=== PATIENT | female | born 1965 | race Caucasian/White ===

== ENCOUNTER 2017-01-14 00:34 | Emergency (ER) | payer BC ==
[~2017-01-14] VITALS: Ht 154.9 cm; Wt 100.9 kg
[2017-01-14] MEDS ORDERED: IBUP200C10 PO (00:40)
[2017-01-14] MEDS ORDERED: GASTROGRAFIN SOLUTION 30ML PO ONE (01:15)
[2017-01-14 01:39] LABS: ALBUMIN 3.2 GM/DL (3.2-5.2); ALBUMIN/GLOBULIN RATIO 0.74 (1.00-1.93); ALKALINE PHOSPHATASE 59 U/L (45-117); ALT/SGPT 25 U/L (12-78); AMYLASE 26 U/L (25-115); ANION GAP 6 MEQ/L (8-16); AST/SGOT 11 U/L (15-37); BILIRUBIN,DIRECT < 0.1 MG/DL (0.0-0.2); BILIRUBIN,TOTAL 0.3 MG/DL (0.2-1.0); BLOOD UREA NITROGEN 18 MG/DL (7-18); CALCIUM LEVEL 8.4 MG/DL (8.5-10.1); CARBON DIOXIDE LEVEL 25 MEQ/L (21-32); CHLORIDE LEVEL 109 MEQ/L (98-107); GLOMERULAR FILTRATION RATE > 60.0 (>58); GLUCOSE, FASTING 104 MG/DL (70-105); POTASSIUM SERUM 3.7 MEQ/L (3.5-5.1); SODIUM LEVEL 140 MEQ/L (136-145); TOTAL PROTEIN 7.5 GM/DL (6.4-8.2)
[2017-01-14 01:45] LABS: BASO # 0.1 K/mm3 (0.0-0.2); BASO % 0.8 % (0.0-1.0); EOS # 0.2 K/mm3 (0.0-0.50); EOS % 2.6 % (0.0-3.0); LARGE UNSTAINED CELL # 0.2 K/mm3 (0.0-0.4); LARGE UNSTAINED CELL % 2.7 % (0.0-4.0); LYMPH # 2.6 K/mm3 (1.5-4.5); LYMPH % 31.4 % (24.0-44.0); MEAN CORPUSCULAR HEMOGLOBIN 30.1 pg (27.0-33.0); MEAN CORPUSCULAR HGB CONC 33.7 g/dl (32.0-36.5); MEAN CORPUSCULAR VOLUME 89.1 fl (80.0-96.0); MONO # 0.6 K/mm3 (0.0-0.8); MONO % 8.1 % (0.0-5.0); NEUTROPHILS # 4.2 K/mm3 (1.8-7.7); NEUTROPHILS % 54.5 % (36.0-66.0); PLATELET COUNT, AUTOMATED 264 k/mm3 (150-450); RED CELL DISTRIBUTION WIDTH 14.6 % (11.5-14.5); WHITE BLOOD COUNT 7.8 K/mm3 (4.0-10.0)
[2017-01-14] MEDS ORDERED: GASTROGRAFIN SOLUTION 30ML (Q9963) PO ONE (01:45)
--- NOTE | 2017-01-14 03:10 | REPUSA ---
CLINICAL HISTORY: Abdominal pain. TECHNIQUE: Multiple axial, sagittal and coronal CT images were obtained through the abdomen and pelvi s without administration of IV contrast material. Patient ingested oral contrast. COMMENTS: Sigmoid diverticulosis. Mild fat stranding surrounding the proximal aspect of the sigmoid colon sugge stive of mild diverticulitis. The liver is enlarged with decreased attenuation without mass or defect. There is no intra or extrahe patic biliary ductal dilatation. The spleen is normal. The gallbladder is within normal limits. The p ancreas is of normal contour and attenuation characteristics. There is no evidence of adrenal mass. The kidneys are normal in size, shape and configuration. No renal or ureteral calculi are identified. There is no hydroureter or hydronephrosis. There is no evidence for appendicitis. No evidence for small or large bowel obstruction. There is no evidence of abdominal ascites or lymphadenopathy. There is no evidence of intrinsic or extrinsic bladder mass. Mild diffuse thickening of the wall of t he bladder. There is no pelvic ascites or lymphadenopathy. 3.5 cm right ovarian cyst. Images of the lung bases show no evidence of pleural or parenchymal mass. There are no pleural effusi ons. The bony structures are free of lytic or blastic lesions. Multilevel degenerative changes are seen in volving the thoracolumbar spine. Scattered calcifications are seen involving the aorta and major branches compatible with atherosclero sis. IMPRESSION: Mild proximal sigmoid diverticulitis. No perforation or abscess formation. Right ovarian cyst. Hepatomegaly with fatty infiltration. Mild thickening of the bladder. Thank you for your kind referral of this patient.
[2017-01-14] MEDS ORDERED: FLAG500T PO (03:30)
[2017-01-14] MEDS ORDERED: CIPR-249 PO (03:30)
[2017-01-14] MEDS ORDERED: CIPROFLOXACIN 500 MG TAB PO ONE (03:30)
[2017-01-14] MEDS ORDERED: metroNIDAZOLE (FLAGYL) 500 MG TAB PO ONE (03:30)
[2017-01-14 03:45] VITALS: BP 132/78
[2017-01-14] MEDS ORDERED: NORCO 5/325MG TABLET (BULK FOR ED) PO ONE (03:45)
[2017-04-02] MEDS ORDERED: AZEL0.1S3 (12:41)
[2017-04-02] MEDS ORDERED: TYLE500T78 PO (12:44)
[2017-04-02] MEDS ORDERED: VITA100067 PO (12:44)
[2017-04-02] MEDS ORDERED: MULT1TAB10 PO (12:44)
== END 2017-01-14 03:47 | disposition home or self-care (01) ==
LOC: M ED 00:34
DX: K57.32 Diverticulitis of large intestine without perforation or abscess without bleeding (principal)
CPT/HCPCS: 36415; 74176; 80048; 80076; 81001; 82150; 83690; 85025; 87086; 99283; Q9963

== ENCOUNTER 2017-02-05 06:57 | Inpatient (IN) | payer BC ==
[~2017-02-05] VITALS: Ht 154.9 cm; Wt 95.5 kg
[~2017-02-05 06:57] MED LIST: CIPR-249 PO; FLAG500T PO; IBUP200C10 PO
[2017-02-05] MEDS ORDERED: BUSP15TA47 PO (07:08)
[2017-02-05] MEDS ORDERED: GASTROGRAFIN SOLUTION 30ML PO ONE (08:15)
[2017-02-05 08:34] LABS: BASO # 0.1 K/mm3 (0.0-0.2); BASO % 0.9 % (0.0-1.0); EOS # 0.3 K/mm3 (0.0-0.50); LARGE UNSTAINED CELL # 0.2 K/mm3 (0.0-0.4); LYMPH # 1.7 K/mm3 (1.5-4.5); LYMPH % 19.2 % (24.0-44.0); MEAN CORPUSCULAR HEMOGLOBIN 29.4 pg (27.0-33.0); MEAN CORPUSCULAR HGB CONC 33.1 g/dl (32.0-36.5); MEAN CORPUSCULAR VOLUME 88.7 fl (80.0-96.0); MONO # 0.5 K/mm3 (0.0-0.8); MONO % 6.4 % (0.0-5.0); NEUTROPHILS # 5.5 K/mm3 (1.8-7.7); NEUTROPHILS % 67.5 % (36.0-66.0); PLATELET COUNT, AUTOMATED 262 k/mm3 (150-450); RED CELL DISTRIBUTION WIDTH 14.5 % (11.5-14.5); WHITE BLOOD COUNT 8.1 K/mm3 (4.0-10.0)
[2017-02-05] MEDS ORDERED: GASTROGRAFIN SOLUTION 30ML (Q9963) PO ONE (08:45)
[2017-02-05 08:52] LABS: ALBUMIN 3.6 GM/DL (3.2-5.2); ALKALINE PHOSPHATASE 47 U/L (45-117); ALT/SGPT 49 U/L (12-78); ANION GAP 8 MEQ/L (8-16); AST/SGOT 45 U/L (15-37); BILIRUBIN,DIRECT < 0.1 MG/DL (0.0-0.2); BILIRUBIN,TOTAL 0.3 MG/DL (0.2-1.0); BLOOD UREA NITROGEN 7 MG/DL (7-18); CALCIUM LEVEL 8.8 MG/DL (8.5-10.1); CARBON DIOXIDE LEVEL 27 MEQ/L (21-32); CHLORIDE LEVEL 106 MEQ/L (98-107); CREATININE FOR GFR 0.68 MG/DL (0.55-1.02); GLOMERULAR FILTRATION RATE > 60.0 (>58); GLUCOSE, FASTING 101 MG/DL (70-105); POTASSIUM SERUM 3.4 MEQ/L (3.5-5.1); SODIUM LEVEL 141 MEQ/L (136-145); TOTAL PROTEIN 7.6 GM/DL (6.4-8.2)
[2017-02-05] MEDS ORDERED: ISOVUE-370 76% 100ML VIAL (Q9967) As Ordered ONE (08:57)
[2017-02-05] MEDS ORDERED: POTASSIUM CHLORIDE 10 MEQ SR TABLET PO ONE (09:00)
[2017-02-05 09:14] LABS: MAGNESIUM LEVEL 2.5 MG/DL (1.8-2.4)
--- NOTE | 2017-02-05 10:37 | REP ---
CT ABDOMEN PELVIS WITH IV AND ORAL CONTRAST: HISTORY: Diverticulitis. Comparison CT study January 14, 2017. CT CONTRAST DOSE: 100 mL of Isovue [address] FINDINGS: Digital preliminary health benefits specialist radiograph shows air-filled small bowel loops in the left mid abdomen. The lung bases are essentially clear. The liver and the spleen are normal in size and homogeneous in texture. No adrenal lesion is seen on either side. No pancreatic or gallbladder abnormality is seen. The kidneys enhance symmetrically and are morphologically intact. No retroperitoneal mass or adenopathy is seen. Normal caliber aorta. A normal appendix is observed in the right lower quadrant. There is a cyst in the right adnexa measuring 3.6 cm in greatest diameter. The uterus is somewhat retroflexed and retroverted. There is left colonic diverticulosis. In the region of the mid descending colon, there is an area of mural thickening and pericolonic fat streaking consistent with early diverticulitis. This should be correlated with the area the patient's pain and tenderness. This is a change from the comparison CT study. There is no evidence of abscess or free air. No abdominal wall defect is observed. No bony destructive lesion is seen. IMPRESSION: Findings compatible with early diverticulitis in the mid descending colon. No abscess or free air. Left colonic diverticulosis. 3.6 cm cyst right ovary. Signed by Juan M Arnold MD 02/05/2017 04:39 P
[2017-02-05] MEDS ORDERED: MORPHINE 2 MG/ML 1ML SYRINGE IV PRN (11:15)
[2017-02-05] MEDS ORDERED: ONDANSETRON 4MG/2ML VIAL (J2405) IV PRN (11:15)
[2017-02-05] MEDS ORDERED: ONDANSETRON 4 MG TAB (S0181) PO PRN (11:15)
[2017-02-05] MEDS ORDERED: ACETAMINOPHEN TAB 650MG DOSE (2X325MG) PO PRN (11:15)
[2017-02-05] MEDS ORDERED: IBUP1TAB7 PO (11:34)
[2017-02-05] MEDS ORDERED: PATIENT COMMENT (11:34)
[2017-02-05] MEDS: PERCOCET 5MG/325MG TAB PO PRN ×2 (12:22→21:03)
[2017-02-05 14:00] VITALS: BP 132/83
[2017-02-05] MEDS: NS 1,000 ML IV SCH ×2 (14:10→21:12)
[2017-02-05] MEDS: PIPERACILLIN/TAZOBACTAM SOD 3.375 GM in D5W MINI-BAG PLUS 50 ML IV SCH ×2 (14:10→18:07)
[2017-02-05] MEDS: ENOXAPARIN 40 MG/0.4 ML SYRINGE (J1650) SC SCH (14:11)
--- NOTE | 2017-02-05 14:43 | HPEPDOC ---
Medical History and Physical Date of Admission Feb 05, 2017 at 11:06 History and Physical HISTORY AND PHYSICAL Date of admission: 02/05/2017 PCP: Dr. Maya Antonio Chief complaint: Abdominal pain HPI: 51-year-old female with depression and recent episode of diverticulitis who presented to the emergency department with abdominal pain. She states that this began at the very end of December when she presented to the emergency department and was diagnosed with sigmoid diverticulitis. She was sent home from the emergency department with 1 week of Cipro and Flagyl. She states that she was approximately 2 days away from finishing this when she was still having pain, so she called her PCP, who prescribed another week of Cipro and Flagyl. She states that this was just last week, and she has just about now completed the entire course. Despite the fact that this should add up to approximately 2 weeks' worth of antibiotics, and it has been 22 days since her initial ER visit , she states that she is very confident that she did not miss any days of taking the antibiotics and took them all subsequently as they were prescribed. She states that the pain was getting worse, so she went to her PCPs office yesterday, and they ordered an outpatient CT of the abdomen and pelvis. However , this required preauthorization, and was going to take several days, then the patient felt that the pain was so significant that she could not wait, so she came to the emergency department. She describes the pain as stabbing and intermittent. She says the pain started out in her left lower quadrant, then moved to the right side of her belly a little bit more in the upper quadrant, then moved to the left upper quadrant, then began to pretty much extend all over increase into her flank and suprapubic areas. She states that she feels a little bit better when she lays flat and stretches out her belly, but sitting up or bending over induce is the pain. She also reports that laying on her back is most comfortable, as laying on either side or on her stomach induces the pain. She states that she has hardly had anything to eat or drink other than liquids since all this started. She says that the pain and discomfort is not related to oral intake. She has had some nausea and dry heaving, but no vomiting. She says that today she had 2 episodes of loose stools but she denies any blood or mucus and does not describe it as diarrhea. She reports chills and weakness but denies any fevers. Past medical history: Depression Past surgical history: , right sided salpingo-nephrectomy in 2013 for abdominal pain associated with an ovarian cyst Family history: COPD, CAD, hypertension, mother currently has lung cancer with metastases Social history: The patient lives with her . 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 She denies any drug or tobacco use, and she states she drinks approximately 9-12 beers monthly. Allergies: No known drug allergies Review of systems: General: Positive for chills and weakness, negative for fevers Eyes: Negative for vision changes and ocular discharge ENT: Negative for sore throat and nose bleed Cardiovascular: Negative for chest pain and palpitations Respiratory: Negative for cough and shortness of breath GI: Positive for nausea and dry heaves. Negative for vomiting, diarrhea, constipation, bloody stool Musculoskeletal: Positive for left-sided back pain, negative for neck pain Skin: Negative for rash Neuro: Positive for headache. Negative for numbness and tingling Psych: Positive for depression. Negative for suicidal ideation Endocrine: Negative for polyuria : Negative For dysuria Heme: Negative For bruising and bleeding Home meds: See below Physical exam: Vital signs: Vital Signs Date Time Temp Pulse Resp B/P (MAP) Pulse Ox O2 Delivery O2 Flow Rate FiO2 02/05/17 07:03 97.8 82 18 126/76 (93) 93 Room Air Gen.: awake, alert, no acute distress Eyes: Extraocular movements intact, normal sclera ENT: Moist mucous membranes Cardiovascular: RRR, no murmurs rubs or gallops Lungs: clear to auscultation bilaterally, no rales, rhonchi, or wheeze Abdomen: decreased BS, soft, TTP predominantly in RLQ and RUQ but also on left side; no rebound Musculoskeletal: normal range of motion Extremities: No peripheral edema Neuro: alert and oriented 3, normal speech, no focal deficits Psych: Normal mood with congruent affect Labs and radiology: See below CBC unremarkable CMP notable for potassium of 3.4 which was replaced in the emergency Department Lipase within normal limits UA shows trace of esterase and 1+ bacteria CT of the abdomen and pelvis shows early diverticulitis in the mid descending colon with no evidence of abscess or free air. It also mentions a right ovarian cyst. Assessment and plan: 51-year-old female with depression and recent diverticulitis who presented to the emergency department with abdominal pain. She is noted to likely have diverticulitis, but she is also having some right-sided pain located where the CT has noted an ovarian cyst. 1. Diverticulitis: The patient has had 2 weeks of oral Cipro and Flagyl, it appears that she has failed outpatient therapy. She is afebrile with a normal white count. We will start her on IV Zosyn at this time, as well as a liquid diet and IV fluids. We will collect a GI panel, and check a urine and blood culture. 2. Right-sided abdominal pain: CT of the abdomen and pelvis reports a right ovarian cyst, however, the patient had a right salpingo-oophorectomy in 2012 secondary to a symptomatic right ovarian cyst. I have spoken with Dr. Arnold, the radiologist who read the CT, and upon further evaluation of the CT, he mentions that this could represent a mesenteric or parametrial cyst, or potentially even a bladder diverticulum. He recommended discussing this with the mva reactor operator head. Dr. Navarro was the mva reactor operator head who performed the patient's BSO in 2012, and I have called her office today. However, she is in the operating room all day today, but I'll plan to call her tomorrow morning, as her office assures me that she'll be available first thing in the morning. 3. Depression: Continue home BuSpar. DVT prophylaxis: Lovenox Dispo: admit as an inpatient to the service of Dr. Raine Norman CODE STATUS: Full code Vital Signs Vital Signs Date Time Temp Pulse Resp B/P (MAP) Pulse Ox O2 Delivery O2 Flow Rate FiO2 02/05/17 12:33 98.8 18 02/05/17 12:22 79 109/62 96 Room Air Laboratory Data Labs 24H Laboratory Tests 2 02/05/17 08:10: White Blood Count 8.1, Red Blood Count 4.99, Hemoglobin 14.7, Hematocrit 44.3, Mean Corpuscular Volume 88.7, Mean Corpuscular Hemoglobin 29.4, Mean Corpuscular Hemoglobin Concent 33.1, Red Cell Distribution Width 14.5, Platelet Count 262, Neutrophils (%) (Auto) 67.5H, Lymphocytes (%) (Auto) 19.2L, Monocytes (%) (Auto) 6.4H, Eosinophils (%) (Auto) 4.0H, Basophils (%) (Auto) 0.9 , Neutrophils # (Auto) 5.5, Lymphocytes # (Auto) 1.7, Monocytes # (Auto) 0.5, Eosinophils # (Auto) 0.3, Basophils # (Auto) 0.1, Large Unclassified Cells % 2.0 , Large Unclassified Cells # 0.2, Urine Appearance CLEAR, Urine Color YELLOW, Urine pH 6.0, Urine Specific Swengel 1.005, Urine Protein NEGATIVE, Urine Glucose (UA) NEGATIVE, Urine Ketones NEGATIVE, Urine Urobilinogen 0.2, Urine Bilirubin NEGATIVE, Urine Leukocyte Esterase TRACEH, Urine Blood NEGATIVE, Urine Nitrite NEGATIVE, Urine WBC (Auto) 1, Urine RBC (Auto) 2, Urine Hyaline Casts (Auto) 0, Urine Bacteria (Auto) 1+H, Urine Squamous Epithelial Cells 1, Urine Sperm (Auto) , Anion Gap 8, Glomerular Filtration Rate > 60.0, Calcium Level 8.8, Magnesium Level 2.5H, Aspartate Amino Transf (AST/SGOT) 45H, Alanine Aminotransferase (ALT/SGPT) 49, Alkaline Phosphatase 47, Total Bilirubin 0.3, Direct Bilirubin < 0.1, Total Protein 7.6, Albumin 3.6, Albumin/Globulin Ratio 0.90L, Lipase 68L CBC/BMP Laboratory Tests 02/05/17 08:10 Red Blood Count 4.99, Mean Corpuscular Volume 88.7, Mean Corpuscular Hemoglobin 29.4, Mean Corpuscular Hemoglobin Concent 33.1, Red Cell Distribution Width 14.5 , Neutrophils (%) (Auto) 67.5 H, Lymphocytes (%) (Auto) 19.2 L, Monocytes (%) ( Auto) 6.4 H, Eosinophils (%) (Auto) 4.0 H, Basophils (%) (Auto) 0.9, Neutrophils # (Auto) 5.5, Lymphocytes # (Auto) 1.7, Monocytes # (Auto) 0.5, Eosinophils # (Auto) 0.3, Basophils # (Auto) 0.1 Microbiology Microbiology 02/05/17 Blood Culture, Received Pending 02/05/17 Blood Culture, Received Pending 02/05/17 Urine Culture, Received Pending Home Medications Scheduled Buspirone HCl (Buspirone HCl) 15 Mg Tab, 15 MG PO QHS Scheduled PRN Ibuprofen (Ibuprofen) 800 Mg Tab, 800 MG PO Q8H PRN for PAIN Miscellaneous Medications [Patient Comment ] FINISHED CIPRO AND FLAGYL YESTERDAY 02/04 Allergies Coded Allergies: No Known Drug Allergy (Verified Allergy, Unknown, 01/14/17) RAINE NORMAN Feb 05, 2017 14:43
[2017-02-05] MEDS: busPIRone 5 MG TAB PO SCH (21:11)
[2017-02-05 22:00] VITALS: BP 125/80
[2017-02-06] MEDS: PIPERACILLIN/TAZOBACTAM SOD 3.375 GM in D5W MINI-BAG PLUS 50 ML IV SCH ×2 (00:32→06:01)
[2017-02-06 06:00] VITALS: BP 135/68
[2017-02-06] MEDS: NS 1,000 ML IV SCH ×2 (06:16→12:02)
[2017-02-06 06:19] LABS: BASO % 0.8 % (0.0-1.0); EOS # 0.2 K/mm3 (0.0-0.50); EOS % 3.6 % (0.0-3.0); LARGE UNSTAINED CELL # 0.2 K/mm3 (0.0-0.4); LARGE UNSTAINED CELL % 2.6 % (0.0-4.0); LYMPH # 1.4 K/mm3 (1.5-4.5); LYMPH % 22.1 % (24.0-44.0); MEAN CORPUSCULAR HEMOGLOBIN 29.3 pg (27.0-33.0); MEAN CORPUSCULAR HGB CONC 32.8 g/dl (32.0-36.5); MEAN CORPUSCULAR VOLUME 89.4 fl (80.0-96.0); MONO # 0.4 K/mm3 (0.0-0.8); MONO % 6.3 % (0.0-5.0); NEUTROPHILS # 3.9 K/mm3 (1.8-7.7); NEUTROPHILS % 64.5 % (36.0-66.0); PLATELET COUNT, AUTOMATED 260 k/mm3 (150-450); RED CELL DISTRIBUTION WIDTH 14.4 % (11.5-14.5); WHITE BLOOD COUNT 6.1 K/mm3 (4.0-10.0)
[2017-02-06 06:47] LABS: ALBUMIN/GLOBULIN RATIO 0.97 (1.00-1.93); ALKALINE PHOSPHATASE 52 U/L (45-117); ALT/SGPT 47 U/L (12-78); ANION GAP 7 MEQ/L (8-16); AST/SGOT 46 U/L (15-37); BILIRUBIN,TOTAL 0.4 MG/DL (0.2-1.0); BLOOD UREA NITROGEN 4 MG/DL (7-18); CALCIUM LEVEL 8.2 MG/DL (8.5-10.1); CARBON DIOXIDE LEVEL 27 MEQ/L (21-32); CHLORIDE LEVEL 108 MEQ/L (98-107); CREATININE FOR GFR 0.63 MG/DL (0.55-1.02); GLOMERULAR FILTRATION RATE > 60.0 (>58); GLUCOSE, FASTING 95 MG/DL (70-105); MAGNESIUM LEVEL 2.4 MG/DL (1.8-2.4); POTASSIUM SERUM 3.8 MEQ/L (3.5-5.1); SODIUM LEVEL 142 MEQ/L (136-145); TOTAL PROTEIN 6.1 GM/DL (6.4-8.2)
[2017-02-06] MEDS: ENOXAPARIN 40 MG/0.4 ML SYRINGE (J1650) SC SCH (09:12)
[2017-02-06] MEDS: VANCOMYCIN ORAL SOL 250MG/5ML ORAL SYRINGE PO SCH ×3 (12:02→23:58)
[2017-02-06] MEDS: PERCOCET 5MG/325MG TAB PO PRN ×2 (12:06→20:51)
--- NOTE | 2017-02-06 14:16 | IPNPDOC ---
Date Seen The patient was seen on 02/06/17. Progress Note Hospitalist Progress Note Subjective: patient states she does not feel any better; has hardly eaten anything; stool last night was liquid Objective: Physical Exam: Vitals: Vital Sign - Last 24 Hours 02/05/17 02/05/17 02/06/17 02/06/17 21:03 22:00 06:00 12:06 Temp 98.4 97.2 Pulse 66 78 Resp 17 18 18 18 B/P (MAP) 125/80 (95) 135/68 (90) Pulse Ox 96 95 O2 Delivery Room Air Room Air 02/06/17 12:46 Resp 18 General: Awake, alert, no acute distress HEENT: Normocephalic, atraumatic, extraocular movements intact CV: Regular rate and rhythm Lungs: Clear to auscultation bilaterally Abd: Soft, decreased BS, TTP predominantly in RLQ and RUQ but also on left side ; no rebound Extremities: Intact pedal pulses Neuro: Alert and oriented 3, normal speech Psych: Normal mood and affect Labs and Imaging: Laboratory Tests 02/06/17 06:04 Red Blood Count 4.61, Mean Corpuscular Volume 89.4, Mean Corpuscular Hemoglobin 29.3, Mean Corpuscular Hemoglobin Concent 32.8, Red Cell Distribution Width 14.4 , Neutrophils (%) (Auto) 64.5, Lymphocytes (%) (Auto) 22.1 L, Monocytes (%) ( Auto) 6.3 H, Eosinophils (%) (Auto) 3.6 H, Basophils (%) (Auto) 0.8, Neutrophils # (Auto) 3.9, Lymphocytes # (Auto) 1.4 L, Monocytes # (Auto) 0.4, Eosinophils # (Auto) 0.2, Basophils # (Auto) 0.0, Calcium Level 8.2 L, Aspartate Amino Transf (AST/SGOT) 46 H, Alanine Aminotransferase (ALT/SGPT) 47, Alkaline Phosphatase 52, Total Bilirubin 0.4, Total Protein 6.1 L, Albumin 3.0 L Assessment and Plan: 51-year-old female with depression and recent diverticulitis who presented to the emergency department with abdominal pain. She is noted to likely have diverticulitis, but she is also having some right-sided pain located where the CT has noted an ovarian cyst. GI panel came back positive for C.diff. 1. Diverticulitis/C.diff colitis: The patient had 2 weeks of oral Cipro and Flagyl prior to admission. She is afebrile with a normal white count. She was initially started on IV Zosyn until the GI panel came back with E.coli and C.diff. She has now been changed to PO vanc. Continue liquid diet and IV fluids. Urine culture is negative and blood culture is pending. 2. Right-sided abdominal pain: CT of the abdomen and pelvis reports a right ovarian cyst, however, the patient had a right salpingo-oophorectomy in 2012 secondary to a symptomatic right ovarian cyst. I have spoken with Dr. Arnold, the radiologist who read the CT, and upon further evaluation of the CT, he mentions that this could represent a mesenteric or parametrial cyst, or potentially even a bladder diverticulum. He recommended discussing this with the siene maker. Dr. Navarro was the siene maker who performed the patient's BSO in 2012, and I have spoken to her. She thinks this is possibly a peritoneal cyst, or even scar tissue, as her reports from the RSO note extensive scar tissue at that time. She advises that this is likely a benign finding, but she is happy to help where necessary. We will plan to schedule the patient outpatient for follow up. 3. Depression: Continue home BuSpar. DVT prophylaxis: Lovenox VS, I&O, 24H, Fishbone Vital Signs/I&O Vital Signs Date Time Temp Pulse Resp B/P (MAP) Pulse Ox O2 Delivery O2 Flow Rate FiO2 02/06/17 12:46 18 02/06/17 06:00 97.2 78 135/68 (90) 95 Room Air I&O- Last 24 Hours up to 6 AM 02/06/17 06:00 Intake Total 480 ml Output Total 0 ml Balance 480 ml Laboratory Data 24H LABS Laboratory Tests 2 02/06/17 06:04: White Blood Count 6.1, Red Blood Count 4.61, Hemoglobin 13.5, Hematocrit 41.2, Mean Corpuscular Volume 89.4, Mean Corpuscular Hemoglobin 29.3, Mean Corpuscular Hemoglobin Concent 32.8, Red Cell Distribution Width 14.4, Platelet Count 260, Neutrophils (%) (Auto) 64.5, Lymphocytes (%) (Auto) 22.1L, Monocytes (%) (Auto) 6.3H, Eosinophils (%) (Auto) 3.6H, Basophils (%) (Auto) 0.8, Neutrophils # (Auto) 3.9, Lymphocytes # (Auto) 1.4L, Monocytes # (Auto) 0.4, Eosinophils # (Auto) 0.2, Basophils # (Auto) 0.0, Large Unclassified Cells % 2.6 , Large Unclassified Cells # 0.2, Anion Gap 7L, Glomerular Filtration Rate > 60.0, Blood Urea Nitrogen 4L, Creatinine 0.63, Sodium Level 142, Potassium Level 3.8, Chloride Level 108H, Carbon Dioxide Level 27, Calcium Level 8.2L, Aspartate Amino Transf (AST/SGOT) 46H, Alanine Aminotransferase (ALT/SGPT) 47, Alkaline Phosphatase 52, Total Bilirubin 0.4, Total Protein 6.1L, Albumin 3.0L, Magnesium Level 2.4, Albumin/Globulin Ratio 0.97L CBC/BMP Laboratory Tests 02/06/17 06:04 Red Blood Count 4.61, Mean Corpuscular Volume 89.4, Mean Corpuscular Hemoglobin 29.3, Mean Corpuscular Hemoglobin Concent 32.8, Red Cell Distribution Width 14.4 , Neutrophils (%) (Auto) 64.5, Lymphocytes (%) (Auto) 22.1 L, Monocytes (%) ( Auto) 6.3 H, Eosinophils (%) (Auto) 3.6 H, Basophils (%) (Auto) 0.8, Neutrophils # (Auto) 3.9, Lymphocytes # (Auto) 1.4 L, Monocytes # (Auto) 0.4, Eosinophils # (Auto) 0.2, Basophils # (Auto) 0.0, Calcium Level 8.2 L, Aspartate Amino Transf (AST/SGOT) 46 H, Alanine Aminotransferase (ALT/SGPT) 47, Alkaline Phosphatase 52, Total Bilirubin 0.4, Total Protein 6.1 L, Albumin 3.0 L Microbiology Microbiology 02/05/17 Blood Culture - Preliminary, Resulted No growth after 24 hours . All specim... 02/05/17 Blood Culture - Preliminary, Resulted No growth after 24 hours . All specim... 02/05/17 Gastrointestinal Tract Panel (PCR) - Final, Complete Enteropathogenic E.coli Clostridium Difficile A/B 02/05/17 Urine Culture - Final, Complete AINSLEY CAST Feb 06, 2017 14:16
[2017-02-06] MEDS: busPIRone 5 MG TAB PO SCH (20:50)
[2017-02-06 22:00] VITALS: BP 136/76
[2017-02-07] MEDS: NS 1,000 ML IV SCH ×2 (03:13→13:00)
[2017-02-07] MEDS: VANCOMYCIN ORAL SOL 250MG/5ML ORAL SYRINGE PO SCH ×3 (05:45→17:25)
[2017-02-07 06:00] VITALS: BP 152/84
[2017-02-07 06:55] LABS: BASO % 1.1 % (0.0-1.0); EOS # 0.2 K/mm3 (0.0-0.50); LARGE UNSTAINED CELL # 0.2 K/mm3 (0.0-0.4); LARGE UNSTAINED CELL % 3.5 % (0.0-4.0); LYMPH % 41.7 % (24.0-44.0); MEAN CORPUSCULAR HEMOGLOBIN 28.6 pg (27.0-33.0); MEAN CORPUSCULAR VOLUME 89.6 fl (80.0-96.0); MONO # 0.3 K/mm3 (0.0-0.8); MONO % 7.5 % (0.0-5.0); NEUTROPHILS # 1.8 K/mm3 (1.8-7.7); NEUTROPHILS % 41.3 % (36.0-66.0); PLATELET COUNT, AUTOMATED 242 k/mm3 (150-450); RED CELL DISTRIBUTION WIDTH 14.6 % (11.5-14.5); WHITE BLOOD COUNT 4.4 K/mm3 (4.0-10.0)
[2017-02-07 07:12] LABS: ALBUMIN/GLOBULIN RATIO 1.03 (1.00-1.93); ALKALINE PHOSPHATASE 46 U/L (45-117); ALT/SGPT 38 U/L (12-78); ANION GAP 6 MEQ/L (8-16); AST/SGOT 22 U/L (15-37); BILIRUBIN,TOTAL 0.2 MG/DL (0.2-1.0); BLOOD UREA NITROGEN 2 MG/DL (7-18); CALCIUM LEVEL 8.4 MG/DL (8.5-10.1); CARBON DIOXIDE LEVEL 26 MEQ/L (21-32); CHLORIDE LEVEL 110 MEQ/L (98-107); CREATININE FOR GFR 0.49 MG/DL (0.55-1.02); GLOMERULAR FILTRATION RATE > 60.0 (>58); GLUCOSE, FASTING 92 MG/DL (70-105); MAGNESIUM LEVEL 2.4 MG/DL (1.8-2.4); POTASSIUM SERUM 3.4 MEQ/L (3.5-5.1); SODIUM LEVEL 142 MEQ/L (136-145); TOTAL PROTEIN 5.9 GM/DL (6.4-8.2)
[2017-02-07] MEDS ORDERED: POTASSIUM CHLORIDE 10 MEQ SR TABLET PO ONE (08:00)
[2017-02-07] MEDS: ENOXAPARIN 40 MG/0.4 ML SYRINGE (J1650) SC SCH (08:53)
--- NOTE | 2017-02-07 12:59 | IPNPDOC ---
Date Seen The patient was seen on 02/07/17. Progress Note Hospitalist Progress Note Subjective: patient states she feels much better, not nauseate, has a bit of an appetite, and abd pain is much improved Objective: Physical Exam: Vitals: Vital Sign - Last 24 Hours 02/06/17 02/06/17 02/06/17 02/07/17 20:51 21:21 22:00 06:00 Temp 98.7 98.4 Pulse 61 85 Resp 17 15 18 18 B/P (MAP) 136/76 (96) 152/84 (106) Pulse Ox 96 98 O2 Delivery Room Air Room Air General: Awake, alert, no acute distress HEENT: Normocephalic, atraumatic, extraocular movements intact CV: Regular rate and rhythm Lungs: Clear to auscultation bilaterally Abd: Soft, decreased BS, TTP in LUQ; prior TTP in right quadrants has resolved; no rebound Extremities: Intact pedal pulses Neuro: Alert and oriented 3, normal speech Psych: Normal mood and affect Labs and Imaging: Laboratory Tests 02/07/17 06:41 Red Blood Count 4.49, Mean Corpuscular Volume 89.6, Mean Corpuscular Hemoglobin 28.6, Mean Corpuscular Hemoglobin Concent 32.0, Red Cell Distribution Width 14.6 H, Neutrophils (%) (Auto) 41.3, Lymphocytes (%) (Auto) 41.7, Monocytes (%) (Auto) 7.5 H, Eosinophils (%) (Auto) 5.0 H, Basophils (%) (Auto) 1.1 H, Neutrophils # (Auto) 1.8, Lymphocytes # (Auto) 2.0, Monocytes # (Auto) 0.3, Eosinophils # (Auto) 0.2, Basophils # (Auto) 0.0, Calcium Level 8.4 L, Aspartate Amino Transf (AST/SGOT) 22, Alanine Aminotransferase (ALT/SGPT) 38, Alkaline Phosphatase 46, Total Bilirubin 0.2, Total Protein 5.9 L, Albumin 3.0 L Assessment and Plan: 51-year-old female with depression and recent diverticulitis who presented to the emergency department with abdominal pain. She is noted to likely have diverticulitis, but she is also having some right-sided pain located where the CT has noted an ovarian cyst. GI panel came back positive for C.diff. 1. Diverticulitis/C.diff colitis: The patient had 2 weeks of oral Cipro and Flagyl prior to admission. She is afebrile with a normal white count. She was initially started on IV Zosyn until the GI panel came back with E.coli and C.diff. She has now been changed to PO vanc. Continue IV fluids and PO vanc. Advance diet as tolerated. Urine culture is negative and blood culture is negative. 2. Right-sided abdominal pain: CT of the abdomen and pelvis reports a right ovarian cyst, however, the patient had a right salpingo-oophorectomy in 2012 secondary to a symptomatic right ovarian cyst. I have spoken with Dr. Arnold, the radiologist who read the CT, and upon further evaluation of the CT, he mentions that this could represent a mesenteric or parametrial cyst, or potentially even a bladder diverticulum. He recommended discussing this with the pediatric nurse. Dr. Navarro was the pediatric nurse who performed the patient's BSO in 2012, and I have spoken to her. She thinks this is possibly a peritoneal cyst, or even scar tissue, as her reports from the [facility] note extensive scar tissue at that time. She advises that this is likely a benign finding, but she is happy to help where necessary. We will plan to schedule the patient outpatient for follow up. 3. Depression: Continue home BuSpar. 4. Hypokalemia: Replacing DVT prophylaxis: Lovenox VS, I&O, 24H, Fishbone Vital Signs/I&O Vital Signs Date Time Temp Pulse Resp B/P (MAP) Pulse Ox O2 Delivery O2 Flow Rate FiO2 02/07/17 06:00 98.4 85 18 152/84 (106) 98 Room Air I&O- Last 24 Hours up to 6 AM 02/07/17 06:00 Intake Total 3980 ml Balance 3980 ml Laboratory Data 24H LABS Laboratory Tests 2 02/07/17 06:41: White Blood Count 4.4, Red Blood Count 4.49, Hemoglobin 12.9, Hematocrit 40.2, Mean Corpuscular Volume 89.6, Mean Corpuscular Hemoglobin 28.6, Mean Corpuscular Hemoglobin Concent 32.0, Red Cell Distribution Width 14.6H, Platelet Count 242, Neutrophils (%) (Auto) 41.3, Lymphocytes (%) (Auto) 41.7, Monocytes (%) (Auto) 7.5H, Eosinophils (%) (Auto) 5.0H, Basophils (%) (Auto) 1.1H, Neutrophils # (Auto) 1.8, Lymphocytes # (Auto) 2.0, Monocytes # (Auto) 0.3 , Eosinophils # (Auto) 0.2, Basophils # (Auto) 0.0, Large Unclassified Cells % 3.5, Large Unclassified Cells # 0.2, Anion Gap 6L, Glomerular Filtration Rate > 60.0, Blood Urea Nitrogen 2L, Creatinine 0.49L, Sodium Level 142, Potassium Level 3.4L, Chloride Level 110H, Carbon Dioxide Level 26, Calcium Level 8.4L, Aspartate Amino Transf (AST/SGOT) 22, Alanine Aminotransferase (ALT/SGPT) 38, Alkaline Phosphatase 46, Total Bilirubin 0.2, Total Protein 5.9L, Albumin 3.0L, Magnesium Level 2.4, Albumin/Globulin Ratio 1.03 CBC/BMP Laboratory Tests 02/07/17 06:41 Red Blood Count 4.49, Mean Corpuscular Volume 89.6, Mean Corpuscular Hemoglobin 28.6, Mean Corpuscular Hemoglobin Concent 32.0, Red Cell Distribution Width 14.6 H, Neutrophils (%) (Auto) 41.3, Lymphocytes (%) (Auto) 41.7, Monocytes (%) (Auto) 7.5 H, Eosinophils (%) (Auto) 5.0 H, Basophils (%) (Auto) 1.1 H, Neutrophils # (Auto) 1.8, Lymphocytes # (Auto) 2.0, Monocytes # (Auto) 0.3, Eosinophils # (Auto) 0.2, Basophils # (Auto) 0.0, Calcium Level 8.4 L, Aspartate Amino Transf (AST/SGOT) 22, Alanine Aminotransferase (ALT/SGPT) 38, Alkaline Phosphatase 46, Total Bilirubin 0.2, Total Protein 5.9 L, Albumin 3.0 L Microbiology Microbiology 02/05/17 Blood Culture - Preliminary, Resulted No Growth after 48 hours. All Specime... 02/05/17 Blood Culture - Preliminary, Resulted No Growth after 48 hours. All Specime... 02/05/17 Gastrointestinal Tract Panel (PCR) - Final, Complete Enteropathogenic E.coli Clostridium Difficile A/B 7/20/17 Urine Culture - Final, Complete AINSLEY CAST Feb 07, 2017 12:59
[2017-02-07] MEDS: busPIRone 5 MG TAB PO SCH (21:26)
[2017-02-07] MEDS: PERCOCET 5MG/325MG TAB PO PRN (21:27)
[2017-02-07 22:00] VITALS: BP 123/69
[2017-02-08] MEDS: VANCOMYCIN ORAL SOL 250MG/5ML ORAL SYRINGE PO SCH ×2 (00:22→05:44)
[2017-02-08] MEDS: NS 1,000 ML IV SCH ×2 (00:23→09:00)
[2017-02-08 06:00] VITALS: BP 142/78
[2017-02-08 06:45] LABS: BASO # 0.1 K/mm3 (0.0-0.2); BASO % 1.1 % (0.0-1.0); EOS # 0.2 K/mm3 (0.0-0.50); EOS % 4.3 % (0.0-3.0); LARGE UNSTAINED CELL # 0.1 K/mm3 (0.0-0.4); LARGE UNSTAINED CELL % 2.6 % (0.0-4.0); LYMPH % 39.6 % (24.0-44.0); MEAN CORPUSCULAR HEMOGLOBIN 29.2 pg (27.0-33.0); MEAN CORPUSCULAR HGB CONC 32.7 g/dl (32.0-36.5); MEAN CORPUSCULAR VOLUME 89.5 fl (80.0-96.0); MONO # 0.3 K/mm3 (0.0-0.8); MONO % 6.3 % (0.0-5.0); NEUTROPHILS # 2.4 K/mm3 (1.8-7.7); NEUTROPHILS % 46.1 % (36.0-66.0); PLATELET COUNT, AUTOMATED 275 k/mm3 (150-450); RED CELL DISTRIBUTION WIDTH 14.6 % (11.5-14.5); WHITE BLOOD COUNT 5.1 K/mm3 (4.0-10.0)
[2017-02-08 07:13] LABS: ALBUMIN 2.9 GM/DL (3.2-5.2); ALBUMIN/GLOBULIN RATIO 0.83 (1.00-1.93); ALKALINE PHOSPHATASE 43 U/L (45-117); ALT/SGPT 36 U/L (12-78); ANION GAP 6 MEQ/L (8-16); AST/SGOT 23 U/L (15-37); BILIRUBIN,TOTAL 0.2 MG/DL (0.2-1.0); BLOOD UREA NITROGEN 2 MG/DL (7-18); CALCIUM LEVEL 8.5 MG/DL (8.5-10.1); CARBON DIOXIDE LEVEL 26 MEQ/L (21-32); CHLORIDE LEVEL 110 MEQ/L (98-107); CREATININE FOR GFR 0.48 MG/DL (0.55-1.02); GLOMERULAR FILTRATION RATE > 60.0 (>58); GLUCOSE, FASTING 91 MG/DL (70-105); MAGNESIUM LEVEL 2.3 MG/DL (1.8-2.4); POTASSIUM SERUM 3.7 MEQ/L (3.5-5.1); SODIUM LEVEL 142 MEQ/L (136-145); TOTAL PROTEIN 6.4 GM/DL (6.4-8.2)
[2017-02-08] MEDS ORDERED: FIRS1SOL3 PO (08:26)
[2017-02-08] MEDS: ENOXAPARIN 40 MG/0.4 ML SYRINGE (J1650) SC SCH (08:41)
[2017-02-08] MEDS ORDERED: PERCOCET PO (10:31)
[2017-02-08] MEDS ORDERED: BACITAB PO (10:31)
--- NOTE | 2017-02-08 11:58 | DS.PDOC ---
Discharge Summary General Date of Admission Feb 05, 2017 at 11:06 Date of Discharge 02/08/2017 Discharge Summary DISCHARGE SUMMARY DATE OF ADMISSION: 02/05/2017 DATE OF DISCHARGE: 02/08/2017 PRIMARY CARE PHYSICIAN: Dr. Maya Antonio DISCHARGE DIAGNOS(E)S: C. difficile colitis Right-sided abdominal pain Hypokalemia HPI & HOSPITAL COURSE: 51-year-old female with depression and recent diverticulitis who presented to the emergency department with diffuse abdominal pain. She is noted to likely have diverticulitis, but she is also having some right-sided pain located where the CT has noted an ovarian cyst. GI panel came back positive for C.diff. 1. Diverticulitis/C.diff colitis: The patient had 2 weeks of oral Cipro and Flagyl prior to admission. She is afebrile with a normal white count. She was initially started on IV Zosyn until the GI panel came back with E.coli and C.diff. She has now been changed to PO vanc. Advance diet as tolerated; she is currently tolerating BRAT diet. Urine culture is negative and blood culture is negative. On the day of discharge, she stated that she had had 2 BMs since the morning prior and they were both formed. Her nausea had resolved and her abd pain was significantly improved although not entirely resolved. She will complete a 10 day course of PO vanocmycin. 2. Right-sided abdominal pain: CT of the abdomen and pelvis reports a right ovarian cyst, however, the patient had a right salpingo-oophorectomy in 2012 secondary to a symptomatic right ovarian cyst. I have spoken with Dr. Arnold, the radiologist who read the CT, and upon further evaluation of the CT, he mentions that this could represent a mesenteric or parametrial cyst, or potentially even a bladder diverticulum. He recommended discussing this with the community health nurse supervisor. Dr. Navarro was the community health nurse supervisor who performed the patient's BSO in 2012, and I have spoken to her. She thinks this is possibly a peritoneal cyst, or even scar tissue, as her reports from the RSO note extensive scar tissue at that time. She advises that this is likely a benign finding, but she is happy to help where necessary. We will plan for the patient to follow up outpatient with Dr. Navarro. On the day of discharge, her right sided abd pain had also significantly improved. 3. Depression: Continue home BuSpar. 4. Hypokalemia: Replaced. DVT prophylaxis: Lovenox PHYSICAL EXAMINATION ON DISCHARGE: VITAL SIGNS: Vital Sign - Last 24 Hours 02/07/17 02/07/17 02/07/17 02/08/17 21:27 22:00 22:10 06:00 Temp 98.1 98.7 Pulse 65 60 Resp 16 18 16 18 B/P (MAP) 123/69 (87) 142/78 (99) Pulse Ox 93 95 O2 Delivery Room Air Room Air General: Awake, alert, no acute distress HEENT: Normocephalic, atraumatic, extraocular movements intact CV: Regular rate and rhythm Lungs: Clear to auscultation bilaterally Abd: Soft, decreased BS, TTP in LUQ; prior TTP in right quadrants has resolved; no rebound Extremities: Intact pedal pulses Neuro: Alert and oriented 3, normal speech Psych: Normal mood and affect DISPOSITION: Home DISCHARGE INSTRUCTIONS: Follow-up with PCP during the coming week. Follow-up with Dr. Navarro at first available appointment. Do not return to work until cleared by primary care physician at follow-up appointment (work note was given to the patient). Continue with BRAT diet, advancing as tolerated. If symptoms return, or if you experience worsening of your symptoms, please call your doctor or return to the emergency department. ITEMS THAT NEED OUTPATIENT FOLLOWUP: Follow up with Dr. Navarro for evaluation of finding on CT abd/pel (see above under "right sided abd pain) Patient was seen and examined by me on the day of discharge, and I spent a total time of greater than 30 minutes on this discharge. Vital Signs/I&Os Vital Signs Date Time Temp Pulse Resp B/P (MAP) Pulse Ox O2 Delivery O2 Flow Rate FiO2 02/08/17 06:00 98.7 60 18 142/78 (99) 95 Room Air I&O- Last 24 Hours up to 6 AM 02/08/17 06:00 Intake Total 2580 ml Balance 2580 ml Laboratory Data Labs 24H Laboratory Tests 2 02/08/17 06:36: White Blood Count 5.1, Red Blood Count 4.68, Hemoglobin 13.7, Hematocrit 41.9, Mean Corpuscular Volume 89.5, Mean Corpuscular Hemoglobin 29.2, Mean Corpuscular Hemoglobin Concent 32.7, Red Cell Distribution Width 14.6H, Platelet Count 275, Neutrophils (%) (Auto) 46.1, Lymphocytes (%) (Auto) 39.6, Monocytes (%) (Auto) 6.3H, Eosinophils (%) (Auto) 4.3H, Basophils (%) (Auto) 1.1H, Neutrophils # (Auto) 2.4, Lymphocytes # (Auto) 2.0, Monocytes # (Auto) 0.3 , Eosinophils # (Auto) 0.2, Basophils # (Auto) 0.1, Large Unclassified Cells % 2.6, Large Unclassified Cells # 0.1, Anion Gap 6L, Glomerular Filtration Rate > 60.0, Blood Urea Nitrogen 2L, Creatinine 0.48L, Sodium Level 142, Potassium Level 3.7, Chloride Level 110H, Carbon Dioxide Level 26, Calcium Level 8.5, Aspartate Amino Transf (AST/SGOT) 23, Alanine Aminotransferase (ALT/SGPT) 36, Alkaline Phosphatase 43L, Total Bilirubin 0.2, Total Protein 6.4, Albumin 2.9L, Magnesium Level 2.3, Albumin/Globulin Ratio 0.83L CBC/BMP Laboratory Tests 02/08/17 06:36 Red Blood Count 4.68, Mean Corpuscular Volume 89.5, Mean Corpuscular Hemoglobin 29.2, Mean Corpuscular Hemoglobin Concent 32.7, Red Cell Distribution Width 14.6 H, Neutrophils (%) (Auto) 46.1, Lymphocytes (%) (Auto) 39.6, Monocytes (%) (Auto) 6.3 H, Eosinophils (%) (Auto) 4.3 H, Basophils (%) (Auto) 1.1 H, Neutrophils # (Auto) 2.4, Lymphocytes # (Auto) 2.0, Monocytes # (Auto) 0.3, Eosinophils # (Auto) 0.2, Basophils # (Auto) 0.1, Calcium Level 8.5, Aspartate Amino Transf (AST/SGOT) 23, Alanine Aminotransferase (ALT/SGPT) 36, Alkaline Phosphatase 43 L, Total Bilirubin 0.2, Total Protein 6.4, Albumin 2.9 L Microbiology Microbiology 02/05/17 Blood Culture - Preliminary, Resulted No Growth after 48 hours. All Specime... 02/05/17 Blood Culture - Preliminary, Resulted No Growth after 48 hours. All Specime... 02/05/17 Gastrointestinal Tract Panel (PCR) - Final, Complete Enteropathogenic E.coli Clostridium Difficile A/B 02/05/17 Urine Culture - Final, Complete Discharge Medications Scheduled (First-Vancomycin 50) 50 Mg/Ml Sasha, 125 MG PO Q6H Buspirone HCl (Buspirone HCl) 15 Mg Tab, 15 MG PO QHS, (Reported) Lactobacillus Acidophilus (Bacid) 1 Tab Tab, 1 TAB PO BID Scheduled PRN Oxycodone/Acetaminophen (Percocet 5MG/325MG Tablet) 1 Tab Tab, 1 TAB PO Q4HP PRN for PAIN Allergies Coded Allergies: No Known Drug Allergy (Verified Allergy, Unknown, 01/14/17) AINSLEY CAST Feb 08, 2017 10:27
[2017-04-02] MEDS ORDERED: AZEL0.1S3 (12:41)
[2017-04-02] MEDS ORDERED: VITA100067 PO (12:44)
[2017-04-02] MEDS ORDERED: TYLE500T78 PO (12:44)
[2017-04-02] MEDS ORDERED: MULT1TAB10 PO (12:44)
== END 2017-02-08 11:41 | disposition home or self-care (01) | DRG 248 ==
LOC: M ED 06:57 → M ED INP 11:06 → M MS5PR 12:55
PROVIDERS: ADMIT Hospitalist; ATTEND Hospitalist
DX: A04.7 Enterocolitis due to Clostridium difficile (principal); K57.92 Diverticulitis of intestine, part unspecified, without perforation or abscess without bleeding; E87.6 Hypokalemia; F32.9 Major depressive disorder, single episode, unspecified; Z79.899 Other long term (current) drug therapy; Z90.721 Acquired absence of ovaries, unilateral; B96.20 Unspecified Escherichia coli [E. coli] as the cause of diseases classified elsewhere

== ENCOUNTER → 2017-02-25 | Outpatient (REF) | payer BC ==
[~2017-02-25] MED LIST changes: +AZEL0.1S3; +BACITAB PO; +BUSP15TA47 PO; +DICY20TA11; +FIRS1SOL3 PO; +IBUP1TAB7 PO; +MULT1TAB10 PO; +PATIENT COMMENT; +PEPC1TAB4 PO; +PERCOCET PO; +SIME1CAP PO; +TYLE500T78 PO; +VITA100067 PO
== END ==
LOC: M LAB REF 17:22
PROVIDERS: ATTEND Family Medicine
DX: R10.2 Pelvic and perineal pain (principal)

== ENCOUNTER → 2017-03-06 | Outpatient (CLI) | payer BC ==
--- NOTE | 2017-03-06 12:04 | REPMRS ---
Patient History The patient states she had a clinical breast exam in 02/2017. Family history of breast cancer in mother at age 50. Digital Woman Screen Mammo: March 06, 2017 - Exam #: [id number] Bilateral CC and MLO view(s) were taken. Technologist: Lissette William, Technologist Prior study comparison: November 02, 2015, digital woman screen mammo performed at [facility]. October 31, 2014, digital woman screen mammo performed at [facility]. FINDINGS: The breast tissue is heterogeneously dense. This may lower the sensitivity of mammography. There has been no change in the appearance of the mammogram from the prior studies. There is a moderate amount of residual fibroglandular tissue which is fairly symmetric. There is no interval development of dominant mass, areas of architectural distortion, or clustered microcalcification typical of malignancy. ASSESSMENT: BI-RADS/ACR category 1 mammogram. Negative. Recommendation Routine screening mammogram in 1 year (for women over age 40). This mammogram was interpreted with the aid of an FDA-approved computer-aided dectection system. Electronically Signed By: Biju Titus MD 03/06/17 [id number]
--- NOTE | 2017-03-06 17:02 | REP ---
Pelvic sonography: History: Pelvic pain. Comparison pelvic sonography 10/06/2012. Comparison CT study of the pelvis 02/05/2017. The patient reports previous right-sided salpingo-oophorectomy. Findings: Transabdominal and transvaginal scanning are performed. Uterus is retroverted retroflexed with dimensions of 8.7 x 5.1 x 5.7 cm. Atrial echo is 1.0 cm thick. There is a right uterine myoma measuring 2.9 x 2.3 x 2.7 cm. Visualized bladder carney are smooth. There is a 3.7 x 3.0 x 3.3 cm simple cyst in the left ovary. Inclusive of this, the left ovary measures 4.8 x 3.8 x 5.1 cm. The Doppler flow in the left ovary is normal with resistive index 0.48. On the right adnexa there is a cystic tubular structure measuring 4.4 x 2.4 x 3.6 cm. This may be a bowel loop. A paraovarian or perimetrium cyst is a possibility as well. Impression: Tubular cystic structure in the right adnexa bowel loop versus parametrium cyst. Small cyst left ovary. Retroverted retroflexed uterus with at 2.9 cm right uterine myoma.
== END ==
LOC: M WHC 10:14
PROVIDERS: ATTEND Family Medicine
DX: Z12.31 Encounter for screening mammogram for malignant neoplasm of breast (principal); R10.2 Pelvic and perineal pain
CPT/HCPCS: 76830; 76856; G0202

== ENCOUNTER → 2017-03-06 | Outpatient (REF) | payer BC ==
[2017-03-06 11:44] LABS: MEAN CORPUSCULAR HEMOGLOBIN 29.2 pg (27.0-33.0); MEAN CORPUSCULAR HGB CONC 33.1 g/dl (32.0-36.5); MEAN CORPUSCULAR VOLUME 88.3 fl (80.0-96.0); RED CELL DISTRIBUTION WIDTH 14.8 % (11.5-14.5); WHITE BLOOD COUNT 4.9 K/mm3 (4.0-10.0)
[2017-03-06 12:04] LABS: ALBUMIN 3.6 GM/DL (3.2-5.2); ALBUMIN/GLOBULIN RATIO 0.97 (1.00-1.93); ALKALINE PHOSPHATASE 55 U/L (45-117); ALT/SGPT 25 U/L (12-78); ANION GAP 8 MEQ/L (8-16); AST/SGOT 17 U/L (15-37); BILIRUBIN,TOTAL 0.4 MG/DL (0.2-1.0); BLOOD UREA NITROGEN 8 MG/DL (7-18); CALCIUM LEVEL 9.1 MG/DL (8.5-10.1); CARBON DIOXIDE LEVEL 26 MEQ/L (21-32); CHLORIDE LEVEL 107 MEQ/L (98-107); CHOLESTEROL LEVEL 238 MG/DL (<200); CREATININE FOR GFR 0.56 MG/DL (0.55-1.02); GLOMERULAR FILTRATION RATE > 60.0 (>58); GLUCOSE, FASTING 85 MG/DL (70-105); POTASSIUM SERUM 4.5 MEQ/L (3.5-5.1); SODIUM LEVEL 141 MEQ/L (136-145); TOTAL PROTEIN 7.3 GM/DL (6.4-8.2); TRIGLYCERIDES LEVEL 184 MG/DL (<150)
== END ==
LOC: M SFHCPLAZ 07:57
PROVIDERS: ATTEND Nurse Practitioner Family
DX: Z86.19 Personal history of other infectious and parasitic diseases (principal); E78.2 Mixed hyperlipidemia; E55.9 Vitamin D deficiency, unspecified

== ENCOUNTER 2017-04-09 07:42 | Outpatient (CLI) | payer BC ==
[~2017-04-09] VITALS: Ht 154.9 cm; Wt 92.5 kg
[~2017-04-09 07:42] MED LIST changes: -DICY20TA11; -PEPC1TAB4 PO; -SIME1CAP PO
[2017-04-09] MEDS ORDERED: NS 1,000 ML IV ONE (08:00)
[2017-04-09] MEDS ORDERED: PROPOFOL 200 MG/20 ML VIAL As Ordered ONE (09:21)
[2017-04-09] MEDS ORDERED: LIDOCAINE 2% INJ 100 MG/5 ML SDV (FOR ANES.) As Ordered ONE (09:21)
--- NOTE | 2017-04-09 09:28 | ROOR ---
Patient Name: Gilma Moreno Procedure Date: 04/09/2017 9:15 AM Date of : 1965 Age: 51 Room: [facility] Gender: Female Note Status: Finalized Procedure: Colonoscopy Indications: Generalized abdominal pain, Follow-up of diverticulitis Providers: Abrahan Palma Jr, MD Referring MD: Olimpia Watts NP Requesting Provider: Medicines: Propofol per Anesthesia Complications: No immediate complications. Procedure: Pre-Anesthesia Assessment: - Prior to the procedure, a History and Physical was performed, and patient medications and allergies were reviewed. The patient is competent. The risks and benefits of the procedure and the sedation options and risks were discussed with the patient. All questions were answered and informed consent was obtained. Patient identification and proposed procedure were verified by the physician and the nurse in the pre-procedure area and in the procedure room. Mental Status Examination: alert and oriented. Airway Examination: normal oropharyngeal airway and neck mobility. Respiratory Examination: clear to auscultation. CV Examination: normal. ASA Grade Assessment: II - A patient with mild systemic disease. After reviewing the risks and benefits, the patient was deemed in satisfactory condition to undergo the procedure. The anesthesia plan was to use moderate sedation / analgesia (conscious sedation). Immediately prior to administration of medications, the patient was re-assessed for adequacy to receive sedatives. The heart rate, respiratory rate, oxygen saturations, blood pressure, adequacy of pulmonary ventilation, and response to care were monitored throughout the procedure. The physical status of the patient was re-assessed after the procedure. The Colonoscope was introduced through the anus and advanced to the cecum, identified by appendiceal orifice and ileocecal valve. The colonoscopy was performed without difficulty. The patient tolerated the procedure well. The quality of the bowel preparation was adequate and good. Findings: The perianal and digital rectal examinations were normal. Pertinent negatives include normal sphincter tone, no palpable rectal lesions and no anal lesion or abnormality was detected. Multiple small and large-mouthed diverticula were found in the sigmoid colon. The rectum, recto-sigmoid colon, descending colon, transverse colon, ascending colon, cecum, appendiceal orifice and ileocecal valve appeared normal. Impression: - Diverticulosis in the sigmoid colon. - No specimens collected. Recommendation: - Discharge patient to home (ambulatory). - Return to my office in 1 month. Abrahan Palma MD Abrahan Palma Jr, MD 04/09/2017 9:28:13 AM This report has been signed electronically. Number of Addenda: 0 Note Initiated On: 04/09/2017 9:15 AM Estimated Blood Loss: Estimated blood loss: none.
[2017-04-09 10:00] VITALS: BP 139/90
== END 2017-04-09 10:10 | disposition home or self-care (01) ==
LOC: M OPP 07:42
PROVIDERS: ATTEND Surgery
DX: R10.84 Generalized abdominal pain (principal); K57.32 Diverticulitis of large intestine without perforation or abscess without bleeding; A04.7 Enterocolitis due to Clostridium difficile; K57.30 Diverticulosis of large intestine without perforation or abscess without bleeding; K52.9 Noninfective gastroenteritis and colitis, unspecified; Z87.19 Personal history of other diseases of the digestive system; F32.9 Major depressive disorder, single episode, unspecified; F41.9 Anxiety disorder, unspecified; Z88.3 Allergy status to other anti-infective agents; Z79.899 Other long term (current) drug therapy

== ENCOUNTER → 2017-04-10 | Outpatient (REF) | payer BC ==
[~2017-04-10] MED LIST changes: +DICY20TA11; +PEPC1TAB4 PO; +SIME1CAP PO
[2017-04-10 16:18] LABS: ALBUMIN 3.6 GM/DL (3.2-5.2); ALBUMIN/GLOBULIN RATIO 0.95 (1.00-1.93); ALKALINE PHOSPHATASE 54 U/L (45-117); ALT/SGPT 37 U/L (12-78); ANION GAP 6 MEQ/L (8-16); AST/SGOT 14 U/L (15-37); BILIRUBIN,TOTAL 0.3 MG/DL (0.2-1.0); BLOOD UREA NITROGEN 11 MG/DL (7-18); CALCIUM LEVEL 8.8 MG/DL (8.5-10.1); CARBON DIOXIDE LEVEL 29 MEQ/L (21-32); CHLORIDE LEVEL 107 MEQ/L (98-107); CREATININE FOR GFR 0.74 MG/DL (0.55-1.02); FERRITIN 13 NG/ML (8-252); FOLATE 21.9 NG/ML; FREE T4 0.86 NG/DL (0.76-1.46); GLOMERULAR FILTRATION RATE > 60.0 (>58); GLUCOSE, FASTING 107 MG/DL (70-105); POTASSIUM SERUM 3.6 MEQ/L (3.5-5.1); SODIUM LEVEL 142 MEQ/L (136-145); TOTAL PROTEIN 7.4 GM/DL (6.4-8.2); VITAMIN B12 LEVEL 756 PG/ML
[2017-04-10 17:27] LABS: BASO % 0.3 % (0.0-1.0); EOS # 0.1 K/mm3 (0.0-0.50); EOS % 0.8 % (0.0-3.0); LARGE UNSTAINED CELL # 0.2 K/mm3 (0.0-0.4); LARGE UNSTAINED CELL % 1.9 % (0.0-4.0); LYMPH # 2.1 K/mm3 (1.5-4.5); MEAN CORPUSCULAR HEMOGLOBIN 30.6 pg (27.0-33.0); MEAN CORPUSCULAR HGB CONC 34.3 g/dl (32.0-36.5); MEAN CORPUSCULAR VOLUME 89.4 fl (80.0-96.0); MONO # 0.6 K/mm3 (0.0-0.8); MONO % 6.7 % (0.0-5.0); NEUTROPHILS # 5.4 K/mm3 (1.8-7.7); NEUTROPHILS % 65.4 % (36.0-66.0); PLATELET COUNT, AUTOMATED 298 k/mm3 (150-450); WHITE BLOOD COUNT 8.3 K/mm3 (4.0-10.0)
== END ==
LOC: M SFHCPLAZ 14:38
PROVIDERS: ATTEND Nurse Practitioner Family
DX: R10.84 Generalized abdominal pain (principal); K76.0 Fatty (change of) liver, not elsewhere classified; R53.83 Other fatigue

== ENCOUNTER 2017-04-16 10:06 | Emergency (ER) | payer BC ==
[~2017-04-16] VITALS: Ht 154.9 cm; Wt 91.9 kg
[~2017-04-16 10:06] MED LIST changes: -DICY20TA11; -PEPC1TAB4 PO; -SIME1CAP PO
[2017-04-16] MEDS ORDERED: DICY20TA11 (10:22)
[2017-04-16] MEDS ORDERED: NS 1,000 ML IV ONE (11:00)
[2017-04-16 11:22] LABS: BASO % 0.6 % (0.0-1.0); EOS # 0.1 10^3/uL (0.0-0.50); EOS % 1.5 % (0.0-3.0); IMMATURE GRANULOCYTE % 0.3 % (0-0); LYMPH # 2.6 10^3/uL (1.5-4.5); MEAN CORPUSCULAR HEMOGLOBIN 28.6 pg (27.0-33.0); MEAN CORPUSCULAR HGB CONC 32.4 g/dl (32.0-36.5); MEAN CORPUSCULAR VOLUME 88.5 fl (80.0-96.0); MONO # 0.5 10^3/uL (0.0-0.8); NEUTROPHILS # 3.4 10^3/uL (1.8-7.7); NEUTROPHILS % 50.6 % (36.0-66.0); PLATELET COUNT, AUTOMATED 292 10^3/uL (150-450); RED CELL DISTRIBUTION WIDTH 15.9 % (11.5-14.5); WHITE BLOOD COUNT 6.7 10^3/uL (4.0-10.0)
[2017-04-16 11:53] LABS: ALBUMIN 3.9 GM/DL (3.2-5.2); ALBUMIN/GLOBULIN RATIO 0.95 (1.00-1.93); ALKALINE PHOSPHATASE 48 U/L (45-117); ALT/SGPT 21 U/L (12-78); AMYLASE 31 U/L (25-115); ANION GAP 5 MEQ/L (8-16); AST/SGOT 12 U/L (15-37); BILIRUBIN,DIRECT 0.1 MG/DL (0.0-0.2); BILIRUBIN,TOTAL 0.4 MG/DL (0.2-1.0); BLOOD UREA NITROGEN 11 MG/DL (7-18); CALCIUM LEVEL 9.4 MG/DL (8.5-10.1); CARBON DIOXIDE LEVEL 29 MEQ/L (21-32); CHLORIDE LEVEL 106 MEQ/L (98-107); CREATININE FOR GFR 0.64 MG/DL (0.55-1.02); GLOMERULAR FILTRATION RATE > 60.0 (>58); GLUCOSE, FASTING 88 MG/DL (70-105); POTASSIUM SERUM 4.2 MEQ/L (3.5-5.1); SODIUM LEVEL 140 MEQ/L (136-145)
[2017-04-16] MEDS ORDERED: DICYCLOMINE INJ 20MG/2ML (J0500) IM ONE (12:00)
[2017-04-16] MEDS ORDERED: METOCLOPRAMIDE INJ 10MG/2ML VIAL (J2765) IV ONE (12:00)
--- NOTE | 2017-04-16 12:39 | REP ---
ABDOMEN, FLAT AND UPRIGHT; PA CHEST, FOUR VIEWS: HISTORY: Abdominal pain. COMPARISON: 06/20/2010. Air is present in small and large intestine. There are no air fluid levels or dilated loops of intestine. There is no pneumoperitoneum. The lungs are clear. IMPRESSION: Nonspecific bowel gas pattern. Signed by Chintan Healy MD 04/16/2017 12:55 P
--- NOTE | 2017-04-16 14:27 | REP ---
RIGHT UPPER QUADRANT ULTRASOUND: Real-time sonographic evaluation of the right upper quadrant is performed. The gallbladder demonstrates no evidence of intraluminal sludge or calculi, wall thickening or pericholecystic fluid. There is no intrahepatic or extrahepatic biliary dilatation, common bile duct measuring 4 mm in diameter. The liver and pancreas demonstrate homogeneous echotexture with no gross mass, although the pancreatic body and tail are not optimally seen due to overlying bowel gas. Right kidney demonstrates no hydronephrosis or nephrolithiasis with normal size at 10.5 cm in length. IMPRESSION: Negative right upper quadrant ultrasound. Signed by Biju Titus MD 04/16/2017 07:53 P
[2017-04-16] MEDS ORDERED: PEPC1TAB4 PO (14:29)
[2017-04-16] MEDS ORDERED: SIME1CAP PO (14:29)
[2017-04-16 14:41] VITALS: BP 140/83
== END 2017-04-16 14:42 | disposition home or self-care (01) ==
LOC: M ED 10:06
DX: G89.29 Other chronic pain (principal); R10.9 Unspecified abdominal pain; R11.0 Nausea; K52.9 Noninfective gastroenteritis and colitis, unspecified; F33.9 Major depressive disorder, recurrent, unspecified; F41.9 Anxiety disorder, unspecified; Z87.19 Personal history of other diseases of the digestive system; Z79.899 Other long term (current) drug therapy; Z88.8 Allergy status to other drugs, medicaments and biological substances
CPT/HCPCS: 74022; 76705; 80048; 80076; 81001; 81025; 82150; 83690; 85025; 87086; 96372; 96374; 99283; J0500; J2765

== ENCOUNTER → 2017-05-01 | Outpatient (REF) | payer BC ==
[~2017-05-01] MED LIST changes: +DICY20TA11; +PEPC1TAB4 PO; +SIME1CAP PO
[2017-05-03 00:06] LABS: Lyme Disease IgG/IgM Antibodie <0.91 ISR (0.00-0.90); Lyme Disease IgM Ab Quantitati <0.80 index (0.00-0.79)
== END ==
LOC: M SFHCPLAZ 07:58
PROVIDERS: ATTEND Nurse Practitioner Family
DX: R53.83 Other fatigue (principal)

== ENCOUNTER → 2017-05-29 | Outpatient (REF) | payer BC ==
[2017-05-29 14:29] LABS: BASO # 0.1 10^3/uL (0.0-0.2); BASO % 0.7 % (0.0-1.0); EOS # 0.2 10^3/uL (0.0-0.50); EOS % 3.1 % (0.0-3.0); IMMATURE GRANULOCYTE % 0.3 % (0-0); LYMPH # 2.9 10^3/uL (1.5-4.5); LYMPH % 38.3 % (24.0-44.0); MEAN CORPUSCULAR HEMOGLOBIN 29.2 pg (27.0-33.0); MEAN CORPUSCULAR HGB CONC 31.8 g/dl (32.0-36.5); MEAN CORPUSCULAR VOLUME 91.8 fl (80.0-96.0); MONO # 0.6 10^3/uL (0.0-0.8); MONO % 8.3 % (0.0-5.0); NEUTROPHILS # 3.8 10^3/uL (1.8-7.7); NEUTROPHILS % 49.3 % (36.0-66.0); PLATELET COUNT, AUTOMATED 374 10^3/uL (150-450); RED CELL DISTRIBUTION WIDTH 15.2 % (11.5-14.5); WHITE BLOOD COUNT 7.6 10^3/uL (4.0-10.0)
== END ==
LOC: M SFHCPLAZ 10:34
PROVIDERS: ATTEND Nurse Practitioner Family
DX: K57.92 Diverticulitis of intestine, part unspecified, without perforation or abscess without bleeding (principal)

== ENCOUNTER → 2017-06-02 | Outpatient (REF) | payer BC ==
[2017-06-02 19:53] LABS: BASO # 0.1 10^3/uL (0.0-0.2); BASO % 0.7 % (0.0-1.0); EOS # 0.5 10^3/uL (0.0-0.50); EOS % 6.3 % (0.0-3.0); IMMATURE GRANULOCYTE % 0.3 % (0-0); LYMPH # 2.8 10^3/uL (1.5-4.5); LYMPH % 39.4 % (24.0-44.0); MEAN CORPUSCULAR HEMOGLOBIN 29.2 pg (27.0-33.0); MEAN CORPUSCULAR HGB CONC 32.2 g/dl (32.0-36.5); MEAN CORPUSCULAR VOLUME 90.7 fl (80.0-96.0); MONO # 0.6 10^3/uL (0.0-0.8); MONO % 8.3 % (0.0-5.0); NEUTROPHILS # 3.2 10^3/uL (1.8-7.7); PLATELET COUNT, AUTOMATED 322 10^3/uL (150-450); RED CELL DISTRIBUTION WIDTH 15.2 % (11.5-14.5); WHITE BLOOD COUNT 7.1 10^3/uL (4.0-10.0)
[2017-06-02 21:11] LABS: ERYTHROCYTE SEDIMENTATION RATE 17 mm/hr (0-20)
== END ==
LOC: M SFHCPLAZ 17:01
PROVIDERS: ATTEND Nurse Practitioner Family
DX: R10.84 Generalized abdominal pain (principal)

== ENCOUNTER 2017-07-16 08:54 | Inpatient (IN) | payer BC ==
[2017-07-16] MEDS: LR 1,000 ML IV ×4 (09:15→22:47)
[2017-07-16 09:40] LABS: MEAN CORPUSCULAR HEMOGLOBIN 27.7 pg (27.0-33.0); MEAN CORPUSCULAR HGB CONC 31.9 g/dl (32.0-36.5); MEAN CORPUSCULAR VOLUME 86.7 fl (80.0-96.0); PLATELET COUNT, AUTOMATED 621 10^3/uL (150-450); RED CELL DISTRIBUTION WIDTH 13.9 % (11.5-14.5); WHITE BLOOD COUNT 7.5 10^3/uL (4.0-10.0)
[2017-07-16 09:59] LABS: CONTROL LINE UCG INT CTR LINE PRESENT
[2017-07-16] MEDS ORDERED: PROPOFOL 200 MG/20 ML VIAL As Ordered (11:33)
[2017-07-16] MEDS ORDERED: ROCURONIUM BROMIDE 50 MG/5 ML VIAL As Ordered ×2 (11:33→13:39)
[2017-07-16] MEDS ORDERED: LIDOCAINE 2% INJ 100 MG/5 ML SDV (FOR ANES.) As Ordered (11:33)
[2017-07-16] MEDS ORDERED: fentaNYL 100 MCG/2 ML INJECTION (J3010) As Ordered ×2 (11:33→15:53)
[2017-07-16] MEDS ORDERED: MIDAZOLAM INJ 2 MG/2 ML VIAL (J2250) As Ordered (11:33)
[2017-07-16] MEDS ORDERED: dexameTHASONE 4 MG/ML 1ML VIAL (J1100) As Ordered ×2 (11:33→15:45)
[2017-07-16] MEDS ORDERED: KETOROLAC 60 MG/2 ML VIAL (J1885) As Ordered (11:34)
[2017-07-16] MEDS ORDERED: HYDROmorphone HCL 2 MG/ML 1ML VIAL (J1170) As Ordered (11:34)
[2017-07-16] MEDS ORDERED: ONDANSETRON 4MG/2ML VIAL (J2405) As Ordered ×2 (11:34→15:45)
[2017-07-16] MEDS ORDERED: NEOSTIGMINE 10 MG/10 ML VIAL (J2710) As Ordered (15:24)
[2017-07-16] MEDS ORDERED: GLYCOPYRROLATE INJ 0.2 MG/ML 2 ML VIAL As Ordered ×2 (15:24)
[2017-07-16] MEDS: METHYLENE BLUE 0.5% (5MG/ML) 10 ML AMP (PROVAYBLUE)(Q9968 PER 1MG) As Ordered ×2 (15:29)
[2017-07-16] MEDS ORDERED: MORPHINE 1MG/ML IN 0.9% NACL 100ML IV BAG As Ordered (16:21)
[2017-07-16] MEDS: MORPHINE 1MG/ML IN 0.9% NACL 100ML IV BAG IV (16:30)
[2017-07-16] MEDS ORDERED: NALOXONE INJ 0.4 MG/1 ML VIAL (J2310) IV (16:30)
[2017-07-16] MEDS ORDERED: EPIDURAL/PCA KEYS XX (16:30)
[2017-07-16] MEDS: ONDANSETRON 4MG/2ML VIAL (J2405) IV (16:30)
[2017-07-16] MEDS ORDERED: fentaNYL 100 MCG/2 ML INJECTION (J3010) IV (16:30)
[2017-07-16] MEDS ORDERED: PERCOCET 5MG/325MG TAB PO (16:30)
[2017-07-16] MEDS ORDERED: diphenhydrAMINE INJ 50MG/ML VIAL (J1200) IV (16:30)
[2017-07-16] MEDS ORDERED: KETOROLAC 30 MG/ML VIAL (J1885) IV (16:30)
[2017-07-16] MEDS ORDERED: NALBUPHINE HCL 10 MG/ML AMP (J2300) IV (16:30)
[2017-07-16] MEDS ORDERED: MORPHINE 10 MG/ML 1ML VIAL IV (16:30)
[2017-07-16] MEDS: GABAPENTIN 300 MG CAP PO (20:03)
[2017-07-16] MEDS: PROMETHAZINE INJ 25 MG/ML VIAL (J2550) IV (20:59)
[2017-07-17 07:30] LABS: MEAN CORPUSCULAR HGB CONC 32.2 g/dl (32.0-36.5); MEAN CORPUSCULAR VOLUME 87.2 fl (80.0-96.0); PLATELET COUNT, AUTOMATED 601 10^3/uL (150-450); RED CELL DISTRIBUTION WIDTH 14.2 % (11.5-14.5); WHITE BLOOD COUNT 13.6 10^3/uL (4.0-10.0)
[2017-07-17] MEDS: NORCO, ANEXSIA 5/325MG TABLET (HYDROcodone/ACETAMINOPHEN) PO ×4 (07:32→21:29)
[2017-07-17] MEDS: GABAPENTIN 300 MG CAP PO ×2 (08:57→21:29)
[2017-07-17] MEDS: IBUPROFEN 600 MG TAB PO ×3 (09:28→23:25)
[2017-07-18] MEDS: NORCO, ANEXSIA 5/325MG TABLET (HYDROcodone/ACETAMINOPHEN) PO ×3 (01:21→13:59)
[2017-07-18] MEDS: GABAPENTIN 300 MG CAP PO (09:47)
[2017-07-18] MEDS: IBUPROFEN 600 MG TAB PO (12:37)
== END 2017-07-18 14:30 | disposition home or self-care (01) | DRG 519 ==
LOC: M SDC 08:54 → M PED 07-18 14:30 → M SDC 07-18 14:30 → M PED 17:32 → M SDC 17:32 → M PED 17:32
PROC: 0UT90ZZ Resection of Uterus, Open Approach (ICD-10-PCS; principal; 2017-07-16 11:08)
PROC: 0UT70ZZ Resection of Bilateral Fallopian Tubes, Open Approach (ICD-10-PCS; 2017-07-16 11:08)
PROC: 0UT20ZZ Resection of Bilateral Ovaries, Open Approach (ICD-10-PCS; 2017-07-16 11:08)
PROC: 0UTC0ZZ Resection of Cervix, Open Approach (ICD-10-PCS; 2017-07-16 11:08)
PROC: 8E0W4CZ Robotic Assisted Procedure of Trunk Region, Percutaneous Endoscopic Approach (ICD-10-PCS; 2017-07-16 11:08)
PROC: 0DNW4ZZ Release Peritoneum, Percutaneous Endoscopic Approach (ICD-10-PCS; 2017-07-16 11:08)
DX: D25.1 Intramural leiomyoma of uterus (principal); N70.03 Acute salpingitis and oophoritis; N83.02 Follicular cyst of left ovary; N73.6 Female pelvic peritoneal adhesions (postinfective); N80.8 Other endometriosis; Z53.31 Laparoscopic surgical procedure converted to open procedure; K58.9 Irritable bowel syndrome, unspecified; E78.00 Pure hypercholesterolemia, unspecified; K57.92 Diverticulitis of intestine, part unspecified, without perforation or abscess without bleeding; Z79.899 Other long term (current) drug therapy; N80.0 Endometriosis of uterus

== ENCOUNTER 2017-07-26 12:17 | Inpatient (IN) | payer BC ==
[2017-07-26] MEDS: IPRATROPIUM 0.5MG/ALBUTEROL 2.5MG INH SOL UD 3ML (DUONEB)(J7620) NEB (12:55)
[2017-07-26 13:06] LABS: BASO % 0.4 % (0.0-1.0); EOS # 0.1 10^3/uL (0.0-0.50); EOS % 0.9 % (0.0-3.0); HEMATOCRIT 30.2 % (36.0-47.0); HEMOGLOBIN 9.7 g/dl (12.0-16.0); IMMATURE GRANULOCYTE % 0.4 % (0-0); LYMPH % 29.9 % (24.0-44.0); MEAN CORPUSCULAR HEMOGLOBIN 27.8 pg (27.0-33.0); MEAN CORPUSCULAR HGB CONC 32.1 g/dl (32.0-36.5); MEAN CORPUSCULAR VOLUME 86.5 fl (80.0-96.0); MONO # 0.6 10^3/uL (0.0-0.8); MONO % 8.4 % (0.0-5.0); PLATELET COUNT, AUTOMATED 525 10^3/uL (150-450); RED BLOOD COUNT 3.49 10^6/uL (4.00-5.40); RED CELL DISTRIBUTION WIDTH 15.1 % (11.5-14.5); WHITE BLOOD COUNT 6.7 10^3/uL (4.0-10.0)
[2017-07-26 13:20] LABS: PARTIAL THROMBOPLASTIN TIME 31.2 SECONDS (26.8-37.9); PROTHROMBIN TIME 13.3 SECONDS (12.4-14.5)
[2017-07-26 13:33] LABS: ANION GAP 7 MEQ/L (8-16); BLOOD UREA NITROGEN 13 MG/DL (7-18); CALCIUM LEVEL 8.5 MG/DL (8.5-10.1); CARBON DIOXIDE LEVEL 27 MEQ/L (21-32); CHLORIDE LEVEL 106 MEQ/L (98-107); CPK CREATINE PHOSPHOKINASE 26 U/L (26-192); GLOMERULAR FILTRATION RATE > 60.0 (>51); GLUCOSE, FASTING 91 MG/DL (70-105); POTASSIUM SERUM 3.5 MEQ/L (3.5-5.1); SODIUM LEVEL 140 MEQ/L (136-145); TROPONIN I < 0.02 NG/ML (< 0.10)
[2017-07-26 13:39] LABS: MB/CK RELATIVE INDEX 3.84 (< OR =4); NT-PRO BNP 25 PG/ML (<125)
[2017-07-26] MEDS ORDERED: ISOVUE-370 76% 100ML VIAL (Q9967) As Ordered (14:13)
[2017-07-26] MEDS: VANCOMYCIN HCL 1,000 MG, VIAL MATE ADAPTER 1 EACH in D5W 250 ML IV ×2 (15:10→20:40)
[2017-07-26] MEDS ORDERED: ACETAMINOPHEN 500 MG TAB PO (16:30)
[2017-07-26] MEDS ORDERED: ONDANSETRON 4MG/2ML VIAL (J2405) IV (16:30)
[2017-07-26] MEDS: PIPERACILLIN/TAZOBACTAM SOD 3.375 GM in APPROPRIATE DILUENT 1 EA IV ×2 (16:49→22:27)
[2017-07-26] MEDS: IBUPROFEN 800 MG TAB PO (18:03)
[2017-07-26] MEDS: ALBUTEROL SULFATE 2.5 MG/0.5 ML INH NEB SOLN INH (20:28)
[2017-07-26] MEDS: CEPACOL LOZENGE PO ×2 (21:04→22:27)
[2017-07-26] MEDS: GABAPENTIN 100 MG CAP PO (21:04)
[2017-07-27] MEDS: ALBUTEROL SULFATE 2.5 MG/0.5 ML INH NEB SOLN INH ×6 (00:12→23:38)
[2017-07-27] MEDS: IBUPROFEN 800 MG TAB PO ×2 (04:38→15:26)
[2017-07-27] MEDS: PIPERACILLIN/TAZOBACTAM SOD 3.375 GM in APPROPRIATE DILUENT 1 EA IV ×4 (04:38→23:37)
[2017-07-27] MEDS: CEPACOL LOZENGE PO ×2 (04:41→21:04)
[2017-07-27 06:13] LABS: HEMATOCRIT 29.2 % (36.0-47.0); HEMOGLOBIN 9.4 g/dl (12.0-16.0); MEAN CORPUSCULAR HEMOGLOBIN 27.8 pg (27.0-33.0); MEAN CORPUSCULAR HGB CONC 32.2 g/dl (32.0-36.5); MEAN CORPUSCULAR VOLUME 86.4 fl (80.0-96.0); PLATELET COUNT, AUTOMATED 494 10^3/uL (150-450); RED BLOOD COUNT 3.38 10^6/uL (4.00-5.40); RED CELL DISTRIBUTION WIDTH 14.8 % (11.5-14.5); WHITE BLOOD COUNT 4.9 10^3/uL (4.0-10.0)
[2017-07-27 06:37] LABS: ANION GAP 7 MEQ/L (8-16); BLOOD UREA NITROGEN 11 MG/DL (7-18); CALCIUM LEVEL 8.4 MG/DL (8.5-10.1); CARBON DIOXIDE LEVEL 28 MEQ/L (21-32); CHLORIDE LEVEL 107 MEQ/L (98-107); CREATININE FOR GFR 0.59 MG/DL (0.55-1.02); GLOMERULAR FILTRATION RATE > 60.0 (>51); GLUCOSE, FASTING 108 MG/DL (70-105); POTASSIUM SERUM 3.2 MEQ/L (3.5-5.1); SODIUM LEVEL 142 MEQ/L (136-145)
[2017-07-27] MEDS: GABAPENTIN 100 MG CAP PO ×2 (09:38→21:04)
[2017-07-27] MEDS: POTASSIUM CHLORIDE 10 MEQ SR TABLET PO (09:38)
[2017-07-27] MEDS: ENOXAPARIN 40 MG/0.4 ML SYRINGE (J1650) SC (09:39)
[2017-07-27] MEDS: VANCOMYCIN HCL 1,000 MG, VIAL MATE ADAPTER 1 EACH in D5W 250 ML IV ×2 (09:39→21:04)
[2017-07-27] MEDS: NORCO, ANEXSIA 5/325MG TABLET (HYDROcodone/ACETAMINOPHEN) PO (21:05)
[2017-07-28] MEDS: PIPERACILLIN/TAZOBACTAM SOD 3.375 GM in APPROPRIATE DILUENT 1 EA IV ×2 (05:11→11:04)
[2017-07-28] MEDS: ALBUTEROL SULFATE 2.5 MG/0.5 ML INH NEB SOLN INH ×2 (05:25→07:19)
[2017-07-28 06:44] LABS: HEMATOCRIT 31.6 % (36.0-47.0); HEMOGLOBIN 9.9 g/dl (12.0-16.0); MEAN CORPUSCULAR HEMOGLOBIN 27.3 pg (27.0-33.0); MEAN CORPUSCULAR HGB CONC 31.3 g/dl (32.0-36.5); MEAN CORPUSCULAR VOLUME 87.3 fl (80.0-96.0); PLATELET COUNT, AUTOMATED 519 10^3/uL (150-450); RED BLOOD COUNT 3.62 10^6/uL (4.00-5.40); RED CELL DISTRIBUTION WIDTH 14.8 % (11.5-14.5); WHITE BLOOD COUNT 5.3 10^3/uL (4.0-10.0)
[2017-07-28 07:07] LABS: ANION GAP 6 MEQ/L (8-16); BLOOD UREA NITROGEN 12 MG/DL (7-18); CALCIUM LEVEL 8.7 MG/DL (8.5-10.1); CARBON DIOXIDE LEVEL 28 MEQ/L (21-32); CHLORIDE LEVEL 107 MEQ/L (98-107); CREATININE FOR GFR 0.65 MG/DL (0.55-1.02); GLOMERULAR FILTRATION RATE > 60.0 (>51); GLUCOSE, FASTING 96 MG/DL (70-105); POTASSIUM SERUM 3.7 MEQ/L (3.5-5.1); SODIUM LEVEL 141 MEQ/L (136-145)
[2017-07-28] MEDS: GABAPENTIN 100 MG CAP PO (08:33)
[2017-07-28] MEDS: ENOXAPARIN 40 MG/0.4 ML SYRINGE (J1650) SC (08:33)
[2017-07-28] MEDS: VANCOMYCIN HCL 1,000 MG, VIAL MATE ADAPTER 1 EACH in D5W 250 ML IV (08:45)
[2017-07-28 09:29] LABS: VANCOMYCIN LEVEL TROUGH 9.2 UG/ML (10.0-20.0)
[2017-07-28] MEDS: IBUPROFEN 800 MG TAB PO (11:44)
[2017-07-28] MEDS ORDERED: VANCOMYCIN HCL 1,000 MG, VIAL MATE ADAPTER 1 EACH in D5W 250 ML IV (17:00)
== END 2017-07-28 13:05 | disposition home or self-care (01) | DRG 139 ==
LOC: M ED 12:17 → M ED INP 16:23 → M MS5PR 17:30
DX: J18.9 Pneumonia, unspecified organism (principal); Z79.899 Other long term (current) drug therapy; E78.5 Hyperlipidemia, unspecified; K57.32 Diverticulitis of large intestine without perforation or abscess without bleeding; Z88.8 Allergy status to other drugs, medicaments and biological substances

== ENCOUNTER → 2017-07-26 | Outpatient (CLI) | payer BC | LOC: M WUC 11:51 | DX: R05 Cough (principal) | CPT/HCPCS: 71046 ==

== ENCOUNTER → 2017-08-20 | Outpatient (CLI) | payer BC ==
[2017-08-20 17:28] LABS: BASO % 0.5 % (0.0-1.0); EOS # 0.3 10^3/uL (0.0-0.50); EOS % 4.7 % (0.0-3.0); HEMATOCRIT 36.3 % (36.0-47.0); HEMOGLOBIN 11.2 g/dl (12.0-16.0); IMMATURE GRANULOCYTE % 0.3 % (0-0); LYMPH # 2.7 10^3/uL (1.5-4.5); LYMPH % 40.9 % (24.0-44.0); MEAN CORPUSCULAR HEMOGLOBIN 26.4 pg (27.0-33.0); MEAN CORPUSCULAR HGB CONC 30.9 g/dl (32.0-36.5); MEAN CORPUSCULAR VOLUME 85.4 fl (80.0-96.0); MONO # 0.6 10^3/uL (0.0-0.8); NEUTROPHILS # 2.9 10^3/uL (1.8-7.7); NEUTROPHILS % 44.6 % (36.0-66.0); PLATELET COUNT, AUTOMATED 422 10^3/uL (150-450); RED BLOOD COUNT 4.25 10^6/uL (4.00-5.40); RED CELL DISTRIBUTION WIDTH 15.1 % (11.5-14.5); WHITE BLOOD COUNT 6.6 10^3/uL (4.0-10.0)
[2017-08-20 17:42] LABS: ANION GAP 8 MEQ/L (8-16); BLOOD UREA NITROGEN 17 MG/DL (7-18); CALCIUM LEVEL 9.5 MG/DL (8.5-10.1); CARBON DIOXIDE LEVEL 25 MEQ/L (21-32); CHLORIDE LEVEL 107 MEQ/L (98-107); CREATININE FOR GFR 0.58 MG/DL (0.55-1.30); GLOMERULAR FILTRATION RATE > 60.0 (>51); GLUCOSE, FASTING 88 MG/DL (70-100); POTASSIUM SERUM 4.3 MEQ/L (3.5-5.1); SODIUM LEVEL 140 MEQ/L (136-145)
== END ==
LOC: M WUC 11:59
DX: J18.1 Lobar pneumonia, unspecified organism (principal); R06.00 Dyspnea, unspecified
CPT/HCPCS: 80048

== ENCOUNTER 2017-11-14 02:51 | Emergency (ER) | payer BC ==
[2017-11-14 04:06] LABS: BASO # 0.1 10^3/uL (0.0-0.2); BASO % 0.8 % (0.0-1.0); EOS # 0.2 10^3/uL (0.0-0.50); EOS % 3.4 % (0.0-3.0); HEMATOCRIT 40.4 % (36.0-47.0); HEMOGLOBIN 12.9 g/dl (12.0-15.5); IMMATURE GRANULOCYTE % 0.2 % (0-3.0); LYMPH # 2.6 10^3/uL (1.5-4.5); LYMPH % 41.2 % (24.0-44.0); MEAN CORPUSCULAR HEMOGLOBIN 25.6 pg (27.0-33.0); MEAN CORPUSCULAR HGB CONC 31.9 g/dl (32.0-36.5); MEAN CORPUSCULAR VOLUME 80.2 fl (80.0-96.0); MONO # 0.6 10^3/uL (0.0-0.8); MONO % 9.9 % (0.0-5.0); NEUTROPHILS # 2.8 10^3/uL (1.8-7.7); NEUTROPHILS % 44.5 % (36.0-66.0); PLATELET COUNT, AUTOMATED 317 10^3/uL (150-450); RED BLOOD COUNT 5.04 10^6/uL (4.00-5.40); RED CELL DISTRIBUTION WIDTH 16.1 % (11.5-14.5); WHITE BLOOD COUNT 6.4 10^3/uL (4.0-10.0)
[2017-11-14] MEDS: NS 1,000 ML IV (04:06)
[2017-11-14 04:18] LABS: ALBUMIN 3.7 GM/DL (3.2-5.2); ALBUMIN/GLOBULIN RATIO 0.79 (1.00-1.93); ALKALINE PHOSPHATASE 75 U/L (45-117); ALT/SGPT 30 U/L (12-78); ANION GAP 6 MEQ/L (8-16); AST/SGOT 18 U/L (7-37); BILIRUBIN,DIRECT < 0.1 MG/DL (0.0-0.2); BILIRUBIN,TOTAL 0.2 MG/DL (0.2-1.0); BLOOD UREA NITROGEN 13 MG/DL (7-18); CALCIUM LEVEL 8.9 MG/DL (8.5-10.1); CARBON DIOXIDE LEVEL 27 MEQ/L (21-32); CHLORIDE LEVEL 108 MEQ/L (98-107); CREATININE FOR GFR 0.65 MG/DL (0.55-1.30); GLOMERULAR FILTRATION RATE > 60.0 (>51); GLUCOSE, FASTING 95 MG/DL (70-100); LIPASE 101 U/L (73-393); POTASSIUM SERUM 3.5 MEQ/L (3.5-5.1); SODIUM LEVEL 141 MEQ/L (136-145); TOTAL PROTEIN 8.4 GM/DL (6.4-8.2)
[2017-11-14] MEDS ORDERED: ISOVUE-370 76% 100ML VIAL (Q9967) As Ordered (04:55)
[2017-11-14] MEDS: CIPROFLOXACIN 500 MG TAB PO (06:55)
[2017-11-14] MEDS: metroNIDAZOLE (FLAGYL) 500 MG TAB PO (06:55)
== END 2017-11-14 07:06 | disposition home or self-care (01) ==
LOC: M ED 02:51
DX: K57.32 Diverticulitis of large intestine without perforation or abscess without bleeding (principal); Z88.8 Allergy status to other drugs, medicaments and biological substances; Z79.899 Other long term (current) drug therapy
CPT/HCPCS: Q9967

== ENCOUNTER → 2017-11-19 | Outpatient (CLI) | payer BC | LOC: M WHC 07:39 | DX: R93.5 Abnormal findings on diagnostic imaging of other abdominal regions, including retroperitoneum (principal); R10.11 Right upper quadrant pain; N83.201 Unspecified ovarian cyst, right side | CPT/HCPCS: 76830 ==

== ENCOUNTER → 2017-12-30 | Outpatient (REF) | payer BC ==
[2017-12-30 17:39] LABS: INR 0.92; PROTHROMBIN TIME 12.5 SECONDS (12.4-14.5)
[2017-12-30 17:40] LABS: PARTIAL THROMBOPLASTIN TIME 28.7 SECONDS (26.8-37.9)
== END ==
LOC: M LAB REF 16:52
DX: R10.2 Pelvic and perineal pain (principal)
CPT/HCPCS: 85610

== ENCOUNTER 2018-01-15 07:09 | Inpatient (IN) | payer BC ==
[2018-01-15] MEDS ORDERED: LIDOCAINE 1% MDV 20ML VIAL As Ordered (07:58)
[2018-01-15 10:49] LABS: HEMATOCRIT 35.5 % (36.0-47.0); HEMOGLOBIN 11.6 g/dl (12.0-15.5); MEAN CORPUSCULAR HEMOGLOBIN 27.2 pg (27.0-33.0); MEAN CORPUSCULAR HGB CONC 32.7 g/dl (32.0-36.5); MEAN CORPUSCULAR VOLUME 83.3 fl (80.0-96.0); PLATELET COUNT, AUTOMATED 274 10^3/uL (150-450); RED BLOOD COUNT 4.26 10^6/uL (4.00-5.40); RED CELL DISTRIBUTION WIDTH 20.1 % (11.5-14.5); WHITE BLOOD COUNT 5.3 10^3/uL (4.0-10.0)
[2018-01-15 11:00] LABS: INR 0.93; PARTIAL THROMBOPLASTIN TIME 25.2 SECONDS (25.4-37.6); PROTHROMBIN TIME 12.6 SECONDS (12.1-14.4)
[2018-01-15 11:08] LABS: ALBUMIN 3.1 GM/DL (3.2-5.2); ALBUMIN/GLOBULIN RATIO 0.91 (1.00-1.93); ALKALINE PHOSPHATASE 59 U/L (45-117); ALT/SGPT 28 U/L (12-78); ANION GAP 7 MEQ/L (8-16); AST/SGOT 16 U/L (7-37); BILIRUBIN,TOTAL 0.3 MG/DL (0.2-1.0); BLOOD UREA NITROGEN 16 MG/DL (7-18); CALCIUM LEVEL 8.3 MG/DL (8.5-10.1); CARBON DIOXIDE LEVEL 26 MEQ/L (21-32); CHLORIDE LEVEL 110 MEQ/L (98-107); CREATININE FOR GFR 0.66 MG/DL (0.55-1.30); GLOMERULAR FILTRATION RATE > 60.0 (>51); GLUCOSE, FASTING 164 MG/DL (70-100); POTASSIUM SERUM 4.1 MEQ/L (3.5-5.1); SODIUM LEVEL 143 MEQ/L (136-145); TOTAL PROTEIN 6.5 GM/DL (6.4-8.2)
[2018-01-15] MEDS: NS 1,000 ML IV (11:36)
[2018-01-15] MEDS ORDERED: ACETAMINOPHEN TAB 650MG DOSE (2X325MG) PO (11:45)
[2018-01-15] MEDS ORDERED: MORPHINE 4 MG/ML 1ML VIAL/SYRINGE (J2270) IV (11:45)
[2018-01-15] MEDS ORDERED: NORCO, ANEXSIA 5/325MG TABLET (HYDROcodone/ACETAMINOPHEN) As Ordered (12:41)
[2018-01-15] MEDS: NORCO, ANEXSIA 5/325MG TABLET (HYDROcodone/ACETAMINOPHEN) PO ×2 (12:45→21:20)
[2018-01-15] MEDS: D5W/0.45% SODIUM CHLORIDE 1,000 ML IV (13:00)
[2018-01-15] MEDS: KCL 20MEQ IN D5/0.45NS 1000ML 1,000 ML IV ×2 (13:27→20:29)
[2018-01-15 13:39] LABS: HEMOGLOBIN 11.1 g/dl (12.0-15.5)
[2018-01-15 13:40] LABS: BASO % 0.3 % (0.0-1.0); EOS # 0.1 10^3/uL (0.0-0.50); EOS % 1.1 % (0.0-3.0); HEMATOCRIT 34.8 % (36.0-47.0); HEMOGLOBIN 11.2 g/dl (12.0-15.5); IMMATURE GRANULOCYTE % 0.5 % (0-3.0); LYMPH # 1.5 10^3/uL (1.5-4.5); LYMPH % 15.8 % (24.0-44.0); MEAN CORPUSCULAR HGB CONC 32.2 g/dl (32.0-36.5); MEAN CORPUSCULAR VOLUME 83.9 fl (80.0-96.0); MONO # 0.5 10^3/uL (0.0-0.8); MONO % 5.8 % (0.0-5.0); NEUTROPHILS # 7.1 10^3/uL (1.8-7.7); NEUTROPHILS % 76.5 % (36.0-66.0); PLATELET COUNT, AUTOMATED 283 10^3/uL (150-450); RED BLOOD COUNT 4.15 10^6/uL (4.00-5.40); RED CELL DISTRIBUTION WIDTH 19.9 % (11.5-14.5); WHITE BLOOD COUNT 9.3 10^3/uL (4.0-10.0)
[2018-01-15 13:56] LABS: ANION GAP 8 MEQ/L (8-16); BLOOD UREA NITROGEN 13 MG/DL (7-18); CALCIUM LEVEL 7.8 MG/DL (8.5-10.1); CARBON DIOXIDE LEVEL 24 MEQ/L (21-32); CHLORIDE LEVEL 108 MEQ/L (98-107); GLOMERULAR FILTRATION RATE > 60.0 (>51); GLUCOSE, FASTING 160 MG/DL (70-100); POTASSIUM SERUM 3.8 MEQ/L (3.5-5.1); SODIUM LEVEL 140 MEQ/L (136-145)
[2018-01-15] MEDS: PANTOPRAZOLE 40MG INJ (PROTONIX) (C9113) IV ×2 (15:59→20:29)
[2018-01-15 17:46] LABS: HEMATOCRIT 32.8 % (36.0-47.0); HEMOGLOBIN 10.7 g/dl (12.0-15.5)
[2018-01-15 23:51] LABS: HEMATOCRIT 31.1 % (36.0-47.0); HEMOGLOBIN 9.9 g/dl (12.0-15.5)
[2018-01-16] MEDS: NORCO, ANEXSIA 5/325MG TABLET (HYDROcodone/ACETAMINOPHEN) PO ×2 (01:31→05:46)
[2018-01-16] MEDS: KCL 20MEQ IN D5/0.45NS 1000ML 1,000 ML IV (03:55)
[2018-01-16 06:00] LABS: HEMATOCRIT 32.2 % (36.0-47.0); HEMOGLOBIN 10.3 g/dl (12.0-15.5)
[2018-01-16] MEDS ORDERED: ESTRADIOL 0.05 MG TD (09:00)
[2018-01-16 09:33] LABS: HEMOGLOBIN 10.2 g/dl (12.0-15.5); MEAN CORPUSCULAR HEMOGLOBIN 26.9 pg (27.0-33.0); MEAN CORPUSCULAR HGB CONC 31.9 g/dl (32.0-36.5); MEAN CORPUSCULAR VOLUME 84.4 fl (80.0-96.0); PLATELET COUNT, AUTOMATED 266 10^3/uL (150-450); RED BLOOD COUNT 3.79 10^6/uL (4.00-5.40); WHITE BLOOD COUNT 6.3 10^3/uL (4.0-10.0)
[2018-01-16 09:53] LABS: ANION GAP 8 MEQ/L (8-16); BLOOD UREA NITROGEN 7 MG/DL (7-18); CALCIUM LEVEL 7.9 MG/DL (8.5-10.1); CARBON DIOXIDE LEVEL 25 MEQ/L (21-32); CHLORIDE LEVEL 111 MEQ/L (98-107); CREATININE FOR GFR 0.53 MG/DL (0.55-1.30); GLOMERULAR FILTRATION RATE > 60.0 (>51); GLUCOSE, FASTING 104 MG/DL (70-100); POTASSIUM SERUM 4.2 MEQ/L (3.5-5.1); SODIUM LEVEL 144 MEQ/L (136-145)
[2018-01-16] MEDS: GABAPENTIN 100 MG CAP PO ×2 (10:21→21:16)
[2018-01-16] MEDS: SENOKOT S TAB PO (10:21)
[2018-01-16] MEDS: IBUPROFEN 600 MG TAB PO (10:22)
[2018-01-16] MEDS: ONDANSETRON 4MG/2ML VIAL (J2405) IV (11:01)
[2018-01-16 18:11] LABS: HEMATOCRIT 32.1 % (36.0-47.0); HEMOGLOBIN 10.1 g/dl (12.0-15.5)
[2018-01-17] MEDS: GABAPENTIN 100 MG CAP PO (08:30)
[2018-01-17] MEDS: IBUPROFEN 600 MG TAB PO (08:39)
[2018-01-17] MEDS ORDERED: ENTER DRUG NAME HERE (PATIENT'S OWN MED) TOP (09:00)
[2018-01-17 14:52] LABS: ANION GAP 8 MEQ/L (8-16); BLOOD UREA NITROGEN 10 MG/DL (7-18); CALCIUM LEVEL 8.6 MG/DL (8.5-10.1); CARBON DIOXIDE LEVEL 26 MEQ/L (21-32); CHLORIDE LEVEL 108 MEQ/L (98-107); CREATININE FOR GFR 0.72 MG/DL (0.55-1.30); GLOMERULAR FILTRATION RATE > 60.0 (>51); GLUCOSE, FASTING 124 MG/DL (70-100); POTASSIUM SERUM 3.6 MEQ/L (3.5-5.1); SODIUM LEVEL 142 MEQ/L (136-145)
== END 2018-01-17 15:20 | disposition home or self-care (01) | DRG 253 ==
LOC: M RADPRO 07:09 → M ICU 12:15 → M MS5PR 01-16 13:42 → M PED 01-16 20:30
PROC: 0WBF3ZX Excision of Abdominal Wall, Percutaneous Approach, Diagnostic (ICD-10-PCS; principal; 2018-01-15)
DX: K66.1 Hemoperitoneum (principal); N13.30 Unspecified hydronephrosis; N20.1 Calculus of ureter; E78.5 Hyperlipidemia, unspecified; N39.3 Stress incontinence (female) (male); Z79.899 Other long term (current) drug therapy; Z88.8 Allergy status to other drugs, medicaments and biological substances; R10.9 Unspecified abdominal pain

== ENCOUNTER → 2018-01-22 | Outpatient (REF) | payer BC ==
[2018-01-22 20:30] LABS: APPEARANCE, URINE HAZY (CLEAR); BACTERIA, URINE AUTO NEGATIVE (NEGATIVE); BILIRUBIN, URINE AUTO NEGATIVE (NEGATIVE); BLOOD, URINE BLOOD 3+ (NEGATIVE); COLOR, URINE YELLOW (YELLOW); GLUCOSE, URINE (UA) AUTO NEGATIVE (NEGATIVE); KETONE, URINE AUTO NEGATIVE (NEGATIVE); LEUKOCYTE ESTERASE, URINE AUTO TRACE (NEGATIVE); MUCUS, URINE SMALL (NEGATIVE); NITRITE, URINE AUTO NEGATIVE (NEGATIVE); PROTEIN, URINE AUTO 1+ mg/dL (NEGATIVE); RBC, URINE AUTO 76 /HPF (0-3); SPECIFIC GRAVITY URINE AUTO 1.031 (1.002-1.035); SQUAMOUS EPITHELIAL CELL UR AU 1 /HPF (0-6); WBC, URINE AUTO 3 /HPF (0-3)
== END ==
LOC: M SFHCPLAZ 16:54
DX: R30.0 Dysuria (principal)
CPT/HCPCS: 81001

== ENCOUNTER → 2018-01-25 | Outpatient (REF) | payer BC ==
[2018-01-25 15:54] LABS: HEMATOCRIT 33.3 % (36.0-47.0); HEMOGLOBIN 10.5 g/dl (12.0-15.5); MEAN CORPUSCULAR HEMOGLOBIN 26.6 pg (27.0-33.0); MEAN CORPUSCULAR HGB CONC 31.5 g/dl (32.0-36.5); MEAN CORPUSCULAR VOLUME 84.3 fl (80.0-96.0); PLATELET COUNT, AUTOMATED 423 10^3/uL (150-450); RED BLOOD COUNT 3.95 10^6/uL (4.00-5.40); RED CELL DISTRIBUTION WIDTH 19.8 % (11.5-14.5); WHITE BLOOD COUNT 8.1 10^3/uL (4.0-10.0)
[2018-01-25 16:30] LABS: ANION GAP 8 MEQ/L (8-16); BLOOD UREA NITROGEN 12 MG/DL (7-18); CARBON DIOXIDE LEVEL 29 MEQ/L (21-32); CHLORIDE LEVEL 104 MEQ/L (98-107); CREATININE FOR GFR 0.63 MG/DL (0.55-1.30); GLOMERULAR FILTRATION RATE > 60.0 (>51); GLUCOSE, FASTING 90 MG/DL (70-100); POTASSIUM SERUM 4.3 MEQ/L (3.5-5.1); SODIUM LEVEL 141 MEQ/L (136-145)
== END ==
LOC: M SFHCPLAZ 14:04
DX: K66.1 Hemoperitoneum (principal); N13.30 Unspecified hydronephrosis
CPT/HCPCS: 80048

== ENCOUNTER → 2018-03-26 | Outpatient (CLI) | payer BC | LOC: M WHC 08:41 | DX: Z12.31 Encounter for screening mammogram for malignant neoplasm of breast (principal) ==

== ENCOUNTER → 2018-07-18 | Outpatient (REF) | payer BC ==
[~2018-07-18] MED LIST changes: +CEPH500C PO; -DICY20TA11; +DICY20TA11 PO; +DOXY100C PO; +ESTR1DIS TD; -FIRS1SOL3 PO; +FIRS50SO PO; +FLORCAP10 PO; -IBUP200C10 PO; +IBUP200C25 PO; +IBUP80TA PO; +NEUR100C PO; +NORC1TAB4 PO; -PEPC1TAB4 PO; +PEPC1TAB5 PO; +PROBCAP4 PO
== END ==
LOC: M LAB REF 10:01
PROVIDERS: ATTEND Physician Assistant
DX: R30.0 Dysuria (principal)

== ENCOUNTER → 2018-10-19 | Outpatient (REF) | payer BC ==
[2018-10-19 15:24] LABS: BLOOD UREA NITROGEN 18 MG/DL (7-18); CALCIUM LEVEL 9.5 MG/DL (8.5-10.1); CARBON DIOXIDE LEVEL 30 MEQ/L (21-32); CHLORIDE LEVEL 102 MEQ/L (98-107); CREATININE FOR GFR 0.75 MG/DL (0.55-1.30); GLOMERULAR FILTRATION RATE > 60.0 (>51); GLUCOSE, FASTING 121 MG/DL (70-100); POTASSIUM SERUM 3.6 MEQ/L (3.5-5.1); SODIUM LEVEL 139 MEQ/L (136-145)
== END ==
LOC: M SFHCPLAZ 13:24
PROVIDERS: ATTEND Nurse Practitioner Family
DX: I10 Essential (primary) hypertension (principal)

== ENCOUNTER → 2018-10-26 | Outpatient (REF) | payer BC ==
[~2018-10-26] MED LIST changes: -NORC1TAB4 PO; +NORC1TAB7 PO
== END ==
LOC: M SFHCPLAZ 17:19
PROVIDERS: ATTEND Nurse Practitioner Family
DX: R30.0 Dysuria (principal)

== ENCOUNTER → 2018-12-21 | Outpatient (REF) | payer BC ==
[2018-12-21 11:21] LABS: BLOOD UREA NITROGEN 21 MG/DL (7-18); CALCIUM LEVEL 9.5 MG/DL (8.5-10.1); CARBON DIOXIDE LEVEL 29 MEQ/L (21-32); CHLORIDE LEVEL 104 MEQ/L (98-107); CREATININE FOR GFR 0.64 MG/DL (0.55-1.30); GLOMERULAR FILTRATION RATE > 60.0 (>51); GLUCOSE, FASTING 101 MG/DL (70-100); POTASSIUM SERUM 4.1 MEQ/L (3.5-5.1); SODIUM LEVEL 140 MEQ/L (136-145)
== END ==
LOC: M SFHCPLAZ 07:47
PROVIDERS: ATTEND Nurse Practitioner Family
DX: I10 Essential (primary) hypertension (principal)

== ENCOUNTER → 2019-04-06 | Outpatient (CLI) | payer BC ==
--- NOTE | 2019-04-06 09:30 | REPMRS ---
Patient History The patient states she has not had a clinical breast exam in over a year. Patient is postmenopausal. Family history of breast cancer at age 50 in mother. Taking estrogen for 1 year 7 months. 3D TOMOSYNTHESIS WAS PERFORMED. [facility] lifetime risk for breast cancer is 15.1%. Digital Woman Screen Mammo: April 06, 2019 - Exam #: [id number] Bilateral CC and MLO view(s) were taken. Technologist: Brittany Ortiz, Technologist Prior study comparison: March 26, 2018, bilateral digital woman screen mammo performed at [facility]. March 06, 2017, digital woman screen mammo performed at [facility]. FINDINGS: The breast tissue is heterogeneously dense. This may lower the sensitivity of mammography. There has been no change in the appearance of the mammogram from the prior studies. There is a moderate amount of residual fibroglandular tissue which is fairly symmetric. There is no interval development of dominant mass, areas of architectural distortion, or clustered microcalcification typical of malignancy. Assessment: BI-RADS/ACR category 1 mammogram. Negative Mammogram. Recommendation Routine screening mammogram in 1 year (for women over age 40). This mammogram was interpreted with the aid of an FDA-approved computer-aided dectection system. Electronically Signed By: Biju Titus MD 04/06/19 0919
== END ==
LOC: M WHC 07:20
PROVIDERS: ATTEND Family Medicine
DX: Z12.31 Encounter for screening mammogram for malignant neoplasm of breast (principal); Z80.3 Family history of malignant neoplasm of breast

== ENCOUNTER → 2019-05-17 | Outpatient (REF) | payer BC ==
[2019-05-17 10:18] LABS: BASO % 0.5 % (0.0-1.0); EOS # 0.1 10^3/uL (0.0-0.5); EOS % 1.5 % (0.0-3.0); HEMOGLOBIN 14.4 g/dl (12.0-15.5); LYMPH # 2.1 10^3/uL (1.5-5.0); LYMPH % 30.9 % (24.0-44.0); MEAN CORPUSCULAR HEMOGLOBIN 29.5 pg (27.0-33.0); MEAN CORPUSCULAR VOLUME 92.2 fl (80.0-96.0); MONO # 0.5 10^3/uL (0.0-0.8); MONO % 7.4 % (0.0-5.0); NEUTROPHILS % 59.4 % (36.0-66.0); PLATELET COUNT, AUTOMATED 300 10^3/uL (150-450); RED BLOOD COUNT 4.88 10^6/uL (4.00-5.40); WHITE BLOOD COUNT 6.6 10^3/uL (4.0-10.0)
[2019-05-17 10:47] LABS: ALT/SGPT 45 U/L (12-78); BILIRUBIN,TOTAL 0.6 MG/DL (0.2-1.0); BLOOD UREA NITROGEN 10 MG/DL (7-18); CALCIUM LEVEL 9.7 MG/DL (8.5-10.1); CARBON DIOXIDE LEVEL 28 MEQ/L (21-32); CHLORIDE LEVEL 105 MEQ/L (98-107); CREATININE FOR GFR 0.65 MG/DL (0.55-1.30); GLOMERULAR FILTRATION RATE > 60.0 (>51); GLUCOSE, FASTING 93 MG/DL (70-100); POTASSIUM SERUM 4.1 MEQ/L (3.5-5.1); SODIUM LEVEL 139 MEQ/L (136-145); TOTAL PROTEIN 8.1 GM/DL (6.4-8.2)
[2019-05-17 10:55] LABS: TOTAL 25(OH) VITAMIN D 26.2 NG/ML (30.0-100.0)
== END ==
LOC: M SFHCPLAZ 08:52
PROVIDERS: ATTEND Nurse Practitioner Family
DX: E55.9 Vitamin D deficiency, unspecified (principal); K57.92 Diverticulitis of intestine, part unspecified, without perforation or abscess without bleeding

== ENCOUNTER → 2019-05-24 | Outpatient (CLI) | payer BC ==
[~2019-05-24] MED LIST changes: +GASTROGRAFIN SOLUTION 30ML (Q9963) As Ordered ONE; +ISOVUE-370 76% 100ML VIAL (Q9967) As Ordered ONE
--- NOTE | 2019-05-24 14:44 | REP ---
CT ABDOMEN PELVIS WITHOUT AND WITH IV CONTRAST, WITH ORAL CONTRAST: HISTORY: Generalized abdomen pain. CONTRAST DOSE: 100 mL of intravenous Isovue [address] FINDINGS: Preliminary digital cargo operations agent radiograph shows a normal bowel gas pattern. The lung bases are clear on axial CT images. There is evidence of mild diffuse fatty infiltration of the liver. Liver is not felt to be enlarged. There is some fat sparing in the left lobe near the elizabeth. No mass lesion is seen in the liver. Spleen is normal in size homogeneous in texture. No abnormalities noted in the adrenal glands on either side. The main pancreatic duct is slightly prominent measuring 4 mm in diameter. There is no evidence of biliary ductal dilation. The gallbladder is unremarkable. No pancreatic mass or cyst is seen. Peripancreatic soft tissues are not edematous. No retroperitoneal mass or adenopathy is seen. The kidneys enhance symmetrically and are morphologically intact. There is diverticulosis involving the sigmoid colon, descending colon. There is no CT evidence of diverticulitis. The uterus is surgically absent. There are two small adjacent cysts in the right adnexa consistent with ovarian cysts. These measure 2.7 and 2.3 cm in greatest diameter respectively. No left adnexal abnormality is observed. Urinary bladder is unremarkable. No abdominal wall defect is appreciated. No bony destructive lesion is seen. 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 IMPRESSION: Mildly prominent main pancreatic duct, 4 mm. No other pancreatic abnormality. Fatty infiltration of the liver. No biliary tract dilation seen. Left colonic diverticulosis. Normal appendix is visible in the right lower quadrant. Post hysterectomy. Two small cysts in the right adnexa. Electronically Signed by Juan M Arnold MD 05/24/2019 03:32 P
== END ==
LOC: M RAD 11:50
PROVIDERS: ATTEND Nurse Practitioner Family
DX: R10.84 Generalized abdominal pain (principal)
CPT/HCPCS: 74178; Q9963; Q9967

== ENCOUNTER → 2019-05-25 | Outpatient (REF) | payer BC ==
[~2019-05-25] MED LIST changes: -GASTROGRAFIN SOLUTION 30ML (Q9963) As Ordered ONE; -ISOVUE-370 76% 100ML VIAL (Q9967) As Ordered ONE
== END ==
LOC: M SFHCPLAZ 13:11
PROVIDERS: ATTEND Nurse Practitioner Family
DX: R19.7 Diarrhea, unspecified (principal)

== ENCOUNTER → 2019-05-30 | Outpatient (REF) | payer BC ==
[2019-05-30 10:51] LABS: APPEARANCE, URINE CLEAR (CLEAR); BACTERIA, URINE AUTO NEGATIVE (NEGATIVE); BILIRUBIN, URINE AUTO NEGATIVE (NEGATIVE); BLOOD, URINE BLOOD 1+ (NEGATIVE); COLOR, URINE YELLOW (YELLOW); GLUCOSE, URINE (UA) AUTO NEGATIVE (NEGATIVE); KETONE, URINE AUTO NEGATIVE (NEGATIVE); LEUKOCYTE ESTERASE, URINE AUTO NEGATIVE (NEGATIVE); NITRITE, URINE AUTO NEGATIVE (NEGATIVE); PROTEIN, URINE AUTO NEGATIVE (NEGATIVE); RBC, URINE AUTO 6 /HPF (0-3); SPECIFIC GRAVITY URINE AUTO 1.018 (1.002-1.035); SQUAMOUS EPITHELIAL CELL UR AU 2 /HPF (0-6); UROBILINOGEN, URINE AUTO 0.2 mg/dL (0.0-2.0); WBC, URINE AUTO 0 /HPF (0-3)
== END ==
LOC: M LAB REF 10:09
PROVIDERS: ATTEND Student in an Organized Health Care Education/Training Program
DX: R31.29 Other microscopic hematuria (principal)

== ENCOUNTER → 2019-09-25 | Outpatient (CLI) | payer BC ==
--- NOTE | 2019-09-25 10:53 | REP ---
Right foot series: Four views. History: Unspecified sprain of the right foot. Findings: Four views right foot show overall normal mineralization. Joint spaces are preserved. No fracture is seen. Plantar calcaneal spurring is noted. Impression: Plantar heel spur. No fracture seen. Electronically Signed by Juan M Arnold MD 09/25/2019 10:45 A
--- NOTE | 2019-09-25 10:55 | REP ---
Right ankle series: Four views. History: Unspecified sprain of the right foot. Findings: There is clothing artifact over the lying the distal calf soft tissues. There is mild medial and lateral malleolar spurring. Two accessory ossicles are seen adjacent to the medial malleolus. No fracture is seen. Plantar heel spur is noted. Impression: No acute bony abnormality. Accessory ossicles adjacent to the medial malleolus. Mild spurring. Electronically Signed by Juan M Arnold MD 09/25/2019 10:46 A
== END ==
LOC: M WUC 10:08
PROVIDERS: ATTEND Physician Assistant
DX: S93.601A Unspecified sprain of right foot, initial encounter (principal); S93.401A Sprain of unspecified ligament of right ankle, initial encounter; M77.31 Calcaneal spur, right foot

== ENCOUNTER → 2019-11-04 | Outpatient (REF) | payer BC ==
[2019-11-04 17:04] LABS: BLOOD UREA NITROGEN 19 MG/DL (7-18); CALCIUM LEVEL 9.7 MG/DL (8.5-10.1); CARBON DIOXIDE LEVEL 27 MEQ/L (21-32); CHLORIDE LEVEL 105 MEQ/L (98-107); CREATININE FOR GFR 0.63 MG/DL (0.55-1.30); GLOMERULAR FILTRATION RATE > 60.0 (>51); GLUCOSE, FASTING 89 MG/DL (70-100); POTASSIUM SERUM 3.8 MEQ/L (3.5-5.1); SODIUM LEVEL 139 MEQ/L (136-145)
[2019-11-04 17:17] LABS: TOTAL 25(OH) VITAMIN D 49.4 NG/ML (30.0-100.0)
== END ==
LOC: M PLALAB 14:00
PROVIDERS: ATTEND Nurse Practitioner Family
DX: I10 Essential (primary) hypertension (principal); E55.9 Vitamin D deficiency, unspecified

== ENCOUNTER → 2020-01-05 | Outpatient (REF) | payer BC | LOC: M WUC 10:14 | PROVIDERS: ATTEND Physician Assistant | DX: R30.0 Dysuria (principal) ==

== ENCOUNTER → 2020-05-04 | Outpatient (CLI) | payer BC ==
--- NOTE | 2020-05-04 09:57 | REPMRS ---
Patient History Family history of breast cancer at age 50 in mother. Taking estrogen for 1 year 7 months. Digital Woman Screen Mammo: May 04, 2020 - Exam #: [id number] Bilateral CC and MLO view(s) were taken. Technologist: Norma Eagle, Technologist Prior study comparison: April 06, 2019, bilateral digital woman screen mammo performed at [facility]. March 26, 2018, bilateral digital woman screen mammo performed at [facility]. March 06, 2017, digital woman screen mammo performed at [facility]. FINDINGS: The breast tissue is almost entirely fat. The Volpara volumetric breast density category is: A. There has been no change in the appearance of the mammogram from the prior studies. There is no interval development of dominant mass, architectural distortion, or grouped microcalcification typical of malignancy. 3-D tomosynthesis shows no additional findings. Assessment: BI-RADS/ACR category 1 mammogram. Negative Mammogram. Recommendation Routine screening mammogram of both breasts in 1 year (for women over age 40). This patient's Lifetime Breast Cancer RIsk is estimated at 14.8 %. This mammogram was interpreted with the aid of an FDA-approved computer-aided dectection system. Electronically Signed By: Teodoro Arnold MD 05/04/20 0957
== END ==
LOC: M WHC 08:55
PROVIDERS: ATTEND Nurse Practitioner Family
DX: Z12.31 Encounter for screening mammogram for malignant neoplasm of breast (principal); Z80.3 Family history of malignant neoplasm of breast

== ENCOUNTER → 2020-05-04 | Outpatient (REF) | payer BC ==
[2020-05-04 10:46] LABS: ALBUMIN 3.8 GM/DL (3.2-5.2); ALT/SGPT 62 U/L (12-78); BILIRUBIN,TOTAL 0.4 MG/DL (0.2-1.0); BLOOD UREA NITROGEN 14 MG/DL (7-18); CALCIUM LEVEL 9.2 MG/DL (8.5-10.1); CARBON DIOXIDE LEVEL 26 MEQ/L (21-32); CHLORIDE LEVEL 107 MEQ/L (98-107); CHOLESTEROL LEVEL 250 MG/DL (<200); GLOMERULAR FILTRATION RATE > 60.0 (>51); GLUCOSE, FASTING 102 MG/DL (70-100); HDL CHOLESTEROL 50 MG/DL (>40); LDL CHOLESTEROL 168 MG/DL (<100); NON-HDL-C 200 MG/DL; POTASSIUM SERUM 4.1 MEQ/L (3.5-5.1); SODIUM LEVEL 141 MEQ/L (136-145); TOTAL PROTEIN 7.3 GM/DL (6.4-8.2); TRIGLYCERIDES LEVEL 159 MG/DL (<150)
[2020-05-04 10:49] LABS: CREATININE, URINE 45.9 MG/DL; MALB URINE SIEMENS < 5.0 MG/L; MAU/CREAT RATIO 10.8 MCG/MG (0.0-30.0); TOTAL 25(OH) VITAMIN D 61.4 NG/ML (30.0-100.0)
== END ==
LOC: M PLALAB 08:05
PROVIDERS: ATTEND Nurse Practitioner Family
DX: E78.2 Mixed hyperlipidemia (principal); I10 Essential (primary) hypertension; E55.9 Vitamin D deficiency, unspecified

== ENCOUNTER → 2020-07-26 | Outpatient (CLI) | payer SELFPAY | LOC: M LABSMTC 09:50 | PROVIDERS: ATTEND Pediatrics | DX: Z20.822 Contact with and (suspected) exposure to COVID-19 (principal) ==

== ENCOUNTER → 2020-08-30 | Outpatient (REF) | payer BC ==
[2020-08-30 19:25] LABS: APPEARANCE, URINE CLEAR (CLEAR); BACTERIA, URINE AUTO NEGATIVE (NEGATIVE); BILIRUBIN, URINE AUTO NEGATIVE (NEGATIVE); BLOOD, URINE BLOOD NEGATIVE (NEGATIVE); COLOR, URINE YELLOW (YELLOW); GLUCOSE, URINE (UA) AUTO NEGATIVE (NEGATIVE); KETONE, URINE AUTO NEGATIVE (NEGATIVE); LEUKOCYTE ESTERASE, URINE AUTO NEGATIVE (NEGATIVE); MUCUS, URINE SMALL (NEGATIVE); NITRITE, URINE AUTO NEGATIVE (NEGATIVE); PROTEIN, URINE AUTO NEGATIVE (NEGATIVE); RBC, URINE AUTO 1 /HPF (0-3); SPECIFIC GRAVITY URINE AUTO 1.019 (1.002-1.035); SQUAMOUS EPITHELIAL CELL UR AU 0 /HPF (0-6); UROBILINOGEN, URINE AUTO 0.2 mg/dL (0.0-2.0); WBC, URINE AUTO 1 /HPF (0-3)
[2020-08-30 19:32] LABS: BASO # 0.1 10^3/uL (0.0-0.2); BASO % 0.7 % (0.0-1.0); EOS # 0.2 10^3/uL (0.0-0.5); EOS % 2.6 % (0.0-3.0); HEMATOCRIT 41.4 % (36.0-47.0); HEMOGLOBIN 13.3 g/dl (12.0-15.5); LYMPH # 3.1 10^3/uL (1.5-5.0); LYMPH % 37.3 % (24.0-44.0); MEAN CORPUSCULAR HEMOGLOBIN 29.4 pg (27.0-33.0); MEAN CORPUSCULAR HGB CONC 32.1 g/dl (32.0-36.5); MEAN CORPUSCULAR VOLUME 91.6 fl (80.0-96.0); MONO # 0.8 10^3/uL (0.0-0.8); NEUTROPHILS % 49.2 % (36.0-66.0); PLATELET COUNT, AUTOMATED 344 10^3/uL (150-450); RED BLOOD COUNT 4.52 10^6/uL (4.00-5.40); WHITE BLOOD COUNT 8.2 10^3/uL (4.0-10.0)
[2020-08-30 20:03] LABS: BLOOD UREA NITROGEN 23 MG/DL (7-18); CALCIUM LEVEL 9.6 MG/DL (8.5-10.1); CARBON DIOXIDE LEVEL 30 MEQ/L (21-32); CHLORIDE LEVEL 102 MEQ/L (98-107); GLOMERULAR FILTRATION RATE > 60.0 (>51); GLUCOSE, FASTING 87 MG/DL (70-100); POTASSIUM SERUM 4.1 MEQ/L (3.5-5.1); SODIUM LEVEL 140 MEQ/L (136-145)
== END ==
LOC: M SFHCPLAZ 15:04
PROVIDERS: ATTEND Nurse Practitioner Family
DX: R10.32 Left lower quadrant pain (principal)

== ENCOUNTER → 2020-08-30 | Outpatient (CLI) | payer BC ==
--- NOTE | 2020-08-31 01:24 | REPPI ---
INDICATION: LLQ PAIN COMPARISON: None. TECHNIQUE: AP, lateral, bilateral oblique, and coned-down views of the lumbar spine. FINDINGS: Alignment and lordosis maintained. Vertebral bodies are intact. No acute fracture/compression injury or subluxation. No obvious spondylolysis or spondylolisthesis. Mild age-related degenerative changes include subtle endplate sclerosis / very early spurring along with hypertrophic facet change and subtle disc space narrowing at L5-S1 is also appreciated. IMPRESSION: Mild essentially age-related degenerative changes. <Electronically signed by Brendan Dillon > 08/31/20 [id number]
--- NOTE | 2020-08-31 01:25 | REPPI ---
INDICATION: LLQ PAIN COMPARISON: None. TECHNIQUE: Supine view of the abdomen and pelvis. FINDINGS: Bowel gas pattern is nonspecific and without obstruction or perforation. No organomegaly. No abnormal calcifications. Phleboliths noted in the pelvis. Skeletal structures intact. IMPRESSION: Normal nonspecific abdominal radiograph. <Electronically signed by Brendan Dillon > 08/31/20 0127
== END ==
LOC: M PLAIMG 15:05
PROVIDERS: ATTEND Nurse Practitioner Family
DX: R10.32 Left lower quadrant pain (principal); M54.42 Lumbago with sciatica, left side

== ENCOUNTER 2020-09-19 12:36 | Emergency (ER) | payer BC ==
[~2020-09-19] VITALS: Ht 154.9 cm; Wt 101.8 kg
[2020-09-19] MEDS ORDERED: LISI-898 (12:52)
[2020-09-19] MEDS ORDERED: CIPR500T39 (12:52)
[2020-09-19] MEDS ORDERED: METR-265 (12:52)
[2020-09-19] MEDS ORDERED: CHLO125TA (12:52)
[2020-09-19 13:27] LABS: BASO # 0.1 10^3/uL (0.0-0.2); BASO % 0.8 % (0.0-1.0); EOS # 0.1 10^3/uL (0.0-0.5); HEMATOCRIT 43.3 % (36.0-47.0); LYMPH # 2.2 10^3/uL (1.5-5.0); LYMPH % 33.7 % (24.0-44.0); MEAN CORPUSCULAR HGB CONC 32.3 g/dl (32.0-36.5); MEAN CORPUSCULAR VOLUME 89.8 fl (80.0-96.0); MONO # 0.7 10^3/uL (0.0-0.8); MONO % 11.1 % (2.0-8.0); NEUTROPHILS # 3.4 10^3/uL (1.5-8.5); NEUTROPHILS % 52.2 % (36.0-66.0); PLATELET COUNT, AUTOMATED 284 10^3/uL (150-450); RED BLOOD COUNT 4.82 10^6/uL (4.00-5.40); WHITE BLOOD COUNT 6.5 10^3/uL (4.0-10.0)
[2020-09-19 14:00] LABS: ALBUMIN 4.1 GM/DL (3.2-5.2); ALT/SGPT 149 U/L (12-78); BILIRUBIN,DIRECT < 0.1 MG/DL (0.0-0.2); BILIRUBIN,TOTAL 0.3 MG/DL (0.2-1.0); BLOOD UREA NITROGEN 8 MG/DL (7-18); CALCIUM LEVEL 9.3 MG/DL (8.5-10.1); CARBON DIOXIDE LEVEL 30 MEQ/L (21-32); CHLORIDE LEVEL 102 MEQ/L (98-107); CREATININE FOR GFR 0.78 MG/DL (0.55-1.30); GLOMERULAR FILTRATION RATE > 60.0 (>51); GLUCOSE, FASTING 124 MG/DL (70-100); LIPASE 55 U/L (73-393); POTASSIUM SERUM 3.1 MEQ/L (3.5-5.1); SODIUM LEVEL 138 MEQ/L (136-145); TOTAL PROTEIN 7.7 GM/DL (6.4-8.2)
[2020-09-19] MEDS ORDERED: ACETAMINOPHEN SUSP DYE FREE 160 MG/5 ML UDC PO ONE (15:35)
[2020-09-19] MEDS ORDERED: METOCLOPRAMIDE INJ 10MG/2ML VIAL (J2765 PER 1) IV ONE (15:35)
[2020-09-19] MEDS ORDERED: POTASSIUM CHLORIDE 10 MEQ SR TABLET PO ONE (15:35)
[2020-09-19] MEDS ORDERED: NS 1,000 ML IV ONE (15:35)
--- NOTE | 2020-09-19 16:06 | REP ---
INDICATION: prior reaction to contrast. hx of divertic, worsening pain COMPARISON: 05/24/2019 TECHNIQUE: Axial noncontrast images from the lung bases to the pubic symphysis with coronal and sagittal reformations. This CT examination was performed using the following dose reduction techniques: Automated exposure control, adjustment of mA and/or kv according to the patient's size, and use of iterative reconstruction technique. FINDINGS: Hepatomegaly and fatty infiltration to the liver noted. Spleen, pancreas, gallbladder, bilateral adrenal glands and kidneys are normal for noncontrast evaluation. The enteric system is without obstruction or acute inflammatory process. Colonic and sigmoid diverticulosis noted without obvious acute diverticulitis. Normal terminal ileum and appendix identified in the right lower quadrant. Pelvis demonstrates normal bladder and evidence for prior hysterectomy with stable right ovarian cyst. No ascites. No free air. No adenopathy. Abdominal aorta without aneurysm. 1 cm fat containing periumbilical hernia again noted. Musculoskeletal structures demonstrate degenerative changes without acute osseous abnormality. Lung bases are clear. IMPRESSION: 1. Hepatomegaly and fatty infiltration to the liver. 2. Diverticulosis without obvious acute diverticulitis. 3. Stable right ovarian cyst 4. No ascites, focal inflammatory stranding, adenopathy, or free air. <Electronically signed by Brendan Dillon > 09/19/20 [id number]
[2020-09-19] MEDS ORDERED: REGL10TA6 PO (17:13)
[2020-09-19 17:15] VITALS: BP 128/59
--- NOTE | 2020-09-20 07:48 | ED PDOC ---
Post-Departure Follow-Up mahad doe faxed formal report of ct abd/p for fu Ayo Landeros MD Sep 20, 2020 07:48
== END 2020-09-19 17:26 | disposition home or self-care (01) ==
LOC: M ED 12:36
DX: R10.30 Lower abdominal pain, unspecified (principal); R11.2 Nausea with vomiting, unspecified; E87.6 Hypokalemia; F32.9 Major depressive disorder, single episode, unspecified; K57.32 Diverticulitis of large intestine without perforation or abscess without bleeding; K52.9 Noninfective gastroenteritis and colitis, unspecified; R16.0 Hepatomegaly, not elsewhere classified; K76.0 Fatty (change of) liver, not elsewhere classified; N83.291 Other ovarian cyst, right side; Z79.3 Long term (current) use of hormonal contraceptives; Z79.899 Other long term (current) drug therapy; Z91.041 Radiographic dye allergy status; Z88.0 Allergy status to penicillin; Z88.1 Allergy status to other antibiotic agents; Z91.89 Other specified personal risk factors, not elsewhere classified
CPT/HCPCS: 74176; 80048; 80076; 81001; 83690; 85025; 87086; 96361; 96374; 99284; J2765

== ENCOUNTER → 2020-09-21 | Outpatient (CLI) | payer BC ==
[~2020-09-21] MED LIST changes: +CHLO125TA; +CIPR500T39; +LISI-898; +METR-265; +REGL10TA6 PO
--- NOTE | 2020-09-21 13:21 | REP ---
INDICATION: R10.2 BLADDER PAIN,HX PELVIC FLOOR MASS AND HYDRONEPHROSIS; Bladder pain, history of pelvic floor mass . COMPARISON: Pelvic ultrasound 11/19/2017. TECHNIQUE: Real-time sonographic evaluation of kidneys and bladder performed. FINDINGS: Renal cortical echogenicity pattern is normal bilaterally and contours are smooth. There is no evidence of hydronephrosis, cyst, mass, or calculus in either kidney. The right kidney measures 11.2 x 4.2 x 5.6 cm. Left renal dimensions are 10.6 x 4.2 x 5.8 cm. With duplex Doppler evaluation resistive index is 0.59 bilaterally. Urinary bladder measures 8.6 x 8.6 x 5.6 cm, total volume 217 cc. Ureteral jets are seen in the urinary bladder with Doppler color evaluation. Postvoid residual is 19 cc. No bladder mass, wall thickening or calculus is seen. In the right adnexa a cystic structure measures 4.3 x 2.3 x 2.7 cm. IMPRESSION: Negative renal ultrasound. Urinary bladder appears unremarkable. Cystic structure in the right adnexa is unchanged since prior pelvic ultrasound and was previously felt to represent chronic hydrosalpinx. <Electronically signed by Biju Titus > 09/21/20 [id number]
== END ==
LOC: M WHC 12:03
PROVIDERS: ATTEND Student in an Organized Health Care Education/Training Program
DX: R10.2 Pelvic and perineal pain (principal)

== ENCOUNTER → 2020-10-16 | Outpatient (REF) | payer BC ==
[2020-10-16 11:18] LABS: BASO # 0.1 10^3/uL (0.0-0.2); BASO % 0.8 % (0.0-1.0); EOS # 0.2 10^3/uL (0.0-0.5); EOS % 2.8 % (0.0-3.0); HEMATOCRIT 41.7 % (36.0-47.0); HEMOGLOBIN 13.4 g/dl (12.0-15.5); LYMPH # 2.6 10^3/uL (1.5-5.0); LYMPH % 41.1 % (24.0-44.0); MEAN CORPUSCULAR HEMOGLOBIN 29.5 pg (27.0-33.0); MEAN CORPUSCULAR HGB CONC 32.1 g/dl (32.0-36.5); MEAN CORPUSCULAR VOLUME 91.9 fl (80.0-96.0); MONO # 0.6 10^3/uL (0.0-0.8); MONO % 9.7 % (2.0-8.0); NEUTROPHILS # 2.9 10^3/uL (1.5-8.5); NEUTROPHILS % 45.3 % (36.0-66.0); PLATELET COUNT, AUTOMATED 296 10^3/uL (150-450); RED BLOOD COUNT 4.54 10^6/uL (4.00-5.40); WHITE BLOOD COUNT 6.3 10^3/uL (4.0-10.0)
[2020-10-16 11:55] LABS: ALBUMIN 3.8 GM/DL (3.2-5.2); ALT/SGPT 38 U/L (12-78); BILIRUBIN,TOTAL 0.2 MG/DL (0.2-1.0); BLOOD UREA NITROGEN 19 MG/DL (7-18); CALCIUM LEVEL 9.5 MG/DL (8.5-10.1); CARBON DIOXIDE LEVEL 31 MEQ/L (21-32); CHLORIDE LEVEL 106 MEQ/L (98-107); CHOLESTEROL LEVEL 264 MG/DL (<200); CHOLESTEROL RISK RATIO 5.739 (<5); CREATININE FOR GFR 0.54 MG/DL (0.55-1.30); GLOMERULAR FILTRATION RATE > 60.0 (>51); GLUCOSE, FASTING 106 MG/DL (70-100); HDL CHOLESTEROL 46 MG/DL (>40); LDL CHOLESTEROL 154 MG/DL (<100); NON-HDL-C 218 MG/DL; POTASSIUM SERUM 4.2 MEQ/L (3.5-5.1); SODIUM LEVEL 140 MEQ/L (136-145); TOTAL PROTEIN 7.5 GM/DL (6.4-8.2); TRIGLYCERIDES LEVEL 322 MG/DL (<150)
[2020-10-16 12:08] LABS: ERYTHROCYTE SEDIMENTATION RATE 16 mm/hr (0-30)
== END ==
LOC: M SFHCPLAZ 08:03
PROVIDERS: ATTEND Nurse Practitioner Family
DX: I10 Essential (primary) hypertension (principal); E78.2 Mixed hyperlipidemia; R10.84 Generalized abdominal pain

== ENCOUNTER → 2021-02-15 | Outpatient (REF) | payer BC ==
[2021-02-15 14:02] LABS: APPEARANCE, URINE HAZY (CLEAR); BACTERIA, URINE AUTO 3+ (NEGATIVE); BILIRUBIN, URINE AUTO NEGATIVE (NEGATIVE); BLOOD, URINE BLOOD 3+ (NEGATIVE); COLOR, URINE YELLOW (YELLOW); GLUCOSE, URINE (UA) AUTO NEGATIVE (NEGATIVE); KETONE, URINE AUTO NEGATIVE (NEGATIVE); LEUKOCYTE ESTERASE, URINE AUTO 3+ (NEGATIVE); NITRITE, URINE AUTO NEGATIVE (NEGATIVE); PROTEIN, URINE AUTO NEGATIVE (NEGATIVE); RBC, URINE AUTO 13 /HPF (0-3); SPECIFIC GRAVITY URINE AUTO 1.009 (1.002-1.035); SQUAMOUS EPITHELIAL CELL UR AU 0 /HPF (0-6); UROBILINOGEN, URINE AUTO 0.2 mg/dL (0.0-2.0); WBC, URINE AUTO 109 /HPF (0-3)
== END ==
LOC: M SFHCWAGY 13:01
PROVIDERS: ATTEND Obstetrics & Gynecology
DX: R30.0 Dysuria (principal)

== ENCOUNTER 2021-03-02 03:00 | Emergency (ER) | payer BC ==
[~2021-03-02] VITALS: Ht 154.9 cm; Wt 105.9 kg
[~2021-03-02 03:00] MED LIST changes: -DOXY100C PO; +DOXY100C3 PO
[2021-03-02] MEDS ORDERED: LIDOCAINE 1% MDV 20ML VIAL As Ordered ONE (04:10)
[2021-03-02] MEDS ORDERED: LIDOCAINE 1% MDV 20ML VIAL TOP ONE (04:45)
[2021-03-02 05:11] VITALS: BP 155/71
== END 2021-03-02 05:12 | disposition home or self-care (01) ==
LOC: M ED 03:00
DX: S00.451A Superficial foreign body of right ear, initial encounter (principal); X58.XXXA Exposure to other specified factors, initial encounter; Y92.9 Unspecified place or not applicable; Y93.9 Activity, unspecified; Y99.9 Unspecified external cause status; E78.5 Hyperlipidemia, unspecified; Z79.899 Other long term (current) drug therapy; Z91.041 Radiographic dye allergy status; Z88.0 Allergy status to penicillin; Z91.89 Other specified personal risk factors, not elsewhere classified

== ENCOUNTER → 2021-04-15 | Outpatient (CLI) | payer BC ==
[2021-04-15 11:15] LABS: BLOOD UREA NITROGEN 23 MG/DL (7-18); CALCIUM LEVEL 9.3 MG/DL (8.5-10.1); CARBON DIOXIDE LEVEL 29 MEQ/L (21-32); CHLORIDE LEVEL 106 MEQ/L (98-107); CREATININE FOR GFR 0.68 MG/DL (0.55-1.30); GLOMERULAR FILTRATION RATE > 60.0 (>51); GLUCOSE, FASTING 129 MG/DL (70-100); POTASSIUM SERUM 4.2 MEQ/L (3.5-5.1); SODIUM LEVEL 141 MEQ/L (136-145)
[2021-04-15 11:42] LABS: CREATININE, URINE 55.3 MG/DL; MALB URINE SIEMENS < 5.0 MG/L
[2021-04-15 12:36] LABS: HEMOGLOBIN A1c 6.2 %
== END ==
LOC: M PLALAB 07:33
PROVIDERS: ATTEND Nurse Practitioner Family
DX: E88.81 Metabolic syndrome and other insulin resistance (principal); I10 Essential (primary) hypertension

== ENCOUNTER → 2021-05-30 | Outpatient (CLI) | payer BC ==
--- NOTE | 2021-05-30 11:14 | REPMRS ---
Patient History The patient states she has not had a clinical breast exam in over a year. Patient is postmenopausal. Family history of breast cancer at age 50 in mother. Took estrogen for 2 years. Tomosynthesis is performed. Volpara breast density is a. [facility] lifetime risk of breast cancer 14.5%. Moderna vaccine 07/16/20 right arm. 08/13/20 left arm. Patient states no breast complaints today. Patient has signed MRS History Sheet. Digital Woman Screen Mammo: May 30, 2021 - Exam #: [id number] Bilateral CC and MLO view(s) were taken. Technologist: RT Pearl Prior study comparison: May 04, 2020, bilateral digital woman screen mammo performed at [facility]. April 06, 2019, bilateral digital woman screen mammo performed at [facility]. FINDINGS: There are scattered fibroglandular densities. There has been no change in the appearance of the mammogram from the prior studies. There is a mild amount of residual fibroglandular tissue which is fairly symmetric. There is no interval development of dominant mass, architectural distortion, or clustered microcalcification suggestive of malignancy. Assessment: BI-RADS/ACR category 1 mammogram. Negative Mammogram. Recommendation Routine screening mammogram in 1 year (for women over age 40). This mammogram was interpreted with the aid of an FDA-approved computer-aided dectection system. Electronically Signed By: Biju Titus MD 05/30/21 6131
== END ==
LOC: M WHC 09:20
PROVIDERS: ATTEND Nurse Practitioner Family
DX: Z12.31 Encounter for screening mammogram for malignant neoplasm of breast (principal); Z80.3 Family history of malignant neoplasm of breast

== ENCOUNTER → 2021-06-18 | Outpatient (REF) | payer BC ==
[~2021-06-18] MED LIST changes: -DICY20TA11 PO; +DICY20TA20 PO; -LISI-898; +LISI5TAB11
== END ==
LOC: M SFHCWAGY 13:05
PROVIDERS: ATTEND Advanced Practice Midwife
DX: N39.0 Urinary tract infection, site not specified (principal)

== ENCOUNTER → 2021-12-03 | Outpatient (CLI) | payer BC ==
[2021-12-03 11:27] LABS: BASO # 0.1 10^3/uL (0.0-0.2); BASO % 0.8 % (0.0-1.0); EOS # 0.2 10^3/uL (0.0-0.5); EOS % 3.5 % (0.0-3.0); HEMATOCRIT 40.2 % (36.0-47.0); HEMOGLOBIN 13.1 g/dl (12.0-15.5); LYMPH # 2.6 10^3/uL (1.5-5.0); LYMPH % 41.3 % (24.0-44.0); MEAN CORPUSCULAR HEMOGLOBIN 30.1 pg (27.0-33.0); MEAN CORPUSCULAR HGB CONC 32.6 g/dl (32.0-36.5); MEAN CORPUSCULAR VOLUME 92.4 fl (80.0-96.0); MONO # 0.5 10^3/uL (0.0-0.8); NEUTROPHILS # 2.9 10^3/uL (1.5-8.5); NEUTROPHILS % 46.1 % (36.0-66.0); PLATELET COUNT, AUTOMATED 280 10^3/uL (150-450); RED BLOOD COUNT 4.35 10^6/uL (4.00-5.40); WHITE BLOOD COUNT 6.2 10^3/uL (4.0-10.0)
[2021-12-03 11:52] LABS: HEMOGLOBIN A1c 6.2 %
[2021-12-03 12:00] LABS: ALT/SGPT 34 U/L (12-78); BILIRUBIN,TOTAL 0.4 MG/DL (0.2-1.0); BLOOD UREA NITROGEN 23 MG/DL (7-18); CALCIUM LEVEL 9.3 MG/DL (8.5-10.1); CARBON DIOXIDE LEVEL 30 MEQ/L (21-32); CHLORIDE LEVEL 105 MEQ/L (98-107); CHOLESTEROL LEVEL 245 MG/DL (<200); CHOLESTEROL RISK RATIO 5.975 (<5); CREATININE FOR GFR 0.62 MG/DL (0.55-1.30); GLOMERULAR FILTRATION RATE > 60.0 (>51); GLUCOSE, FASTING 115 MG/DL (70-100); HDL CHOLESTEROL 41 MG/DL (>40); NON-HDL-C 204 MG/DL; POTASSIUM SERUM 4.1 MEQ/L (3.5-5.1); SODIUM LEVEL 139 MEQ/L (136-145); TRIGLYCERIDES LEVEL 311 MG/DL (<150)
[2021-12-03 12:01] LABS: ALBUMIN 3.7 GM/DL (3.2-5.2); LDL CHOLESTEROL 142 MG/DL (<100); TOTAL 25(OH) VITAMIN D 20.3 NG/ML (30.0-100.0); TOTAL PROTEIN 7.2 GM/DL (6.4-8.2)
== END ==
LOC: M PLALAB 06:53
PROVIDERS: ATTEND Physician Assistant Medical
DX: R73.03 Prediabetes (principal)

== ENCOUNTER → 2022-06-04 | Outpatient (CLI) | payer BC ==
[2022-06-04 10:17] LABS: BASO % 0.5 % (0.0-1.0); EOS # 0.1 10^3/uL (0.0-0.5); EOS % 2.4 % (0.0-3.0); HEMATOCRIT 41.5 % (36.0-47.0); HEMOGLOBIN 13.1 g/dl (12.0-15.5); LYMPH # 2.3 10^3/uL (1.5-5.0); LYMPH % 38.3 % (24.0-44.0); MEAN CORPUSCULAR HEMOGLOBIN 29.1 pg (27.0-33.0); MEAN CORPUSCULAR HGB CONC 31.6 g/dl (32.0-36.5); MEAN CORPUSCULAR VOLUME 92.2 fl (80.0-96.0); MONO # 0.6 10^3/uL (0.0-0.8); MONO % 9.3 % (2.0-8.0); NEUTROPHILS # 2.9 10^3/uL (1.5-8.5); NEUTROPHILS % 49.2 % (36.0-66.0); PLATELET COUNT, AUTOMATED 269 10^3/uL (150-450); WHITE BLOOD COUNT 5.9 10^3/uL (4.0-10.0)
[2022-06-04 11:18] LABS: ALT/SGPT 34 U/L (7.0-40); BILIRUBIN,TOTAL 0.5 MG/DL (0.3-1.2); BLOOD UREA NITROGEN 27 MG/DL (9-23); CALCIUM LEVEL 9.5 MG/DL (8.5-10.1); CARBON DIOXIDE LEVEL 26 MMOL/L (20-31); CHLORIDE LEVEL 103 MMOL/L (98-107); CHOLESTEROL LEVEL 184 MG/DL (<200); CHOLESTEROL RISK RATIO 3.69 (<5); CREATININE FOR GFR 0.53 MG/DL (0.55-1.30); FREE T4 0.91 NG/DL (0.89-1.76); GLOMERULAR FILTRATION RATE > 60.0 (>51); GLUCOSE, FASTING 110 MG/DL (60-100); HDL CHOLESTEROL 49.8 MG/DL (>40); LDL CHOLESTEROL 95.4 MG/DL (<100); NON-HDL-C 134 MG/DL; PTH INTACT 40.8 PG/ML (18.5-88.0); SODIUM LEVEL 140 MMOL/L (136-145); THYROID STIMULATING HORMONE 2.857 uIU/ML (0.55-4.78); TOTAL 25(OH) VITAMIN D 29.2 NG/ML (20.0-100.0); TOTAL PROTEIN 7.1 G/DL (5.7-8.2); TRIGLYCERIDES LEVEL 194 MG/DL (<150)
== END ==
LOC: M PLALAB 07:10
PROVIDERS: ATTEND Physician Assistant Medical
DX: R73.03 Prediabetes (principal); E78.2 Mixed hyperlipidemia; E55.9 Vitamin D deficiency, unspecified; I10 Essential (primary) hypertension

== ENCOUNTER → 2022-06-16 | Outpatient (CLI) | payer BC | LOC: M WHC 07:15 | PROVIDERS: ATTEND Physician Assistant Medical | DX: K76.0 Fatty (change of) liver, not elsewhere classified (principal) ==

== ENCOUNTER → 2022-07-04 | Outpatient (CLI) | payer BC | LOC: M WHC 13:12 | PROVIDERS: ATTEND Physician Assistant Medical | DX: Z12.39 Encounter for other screening for malignant neoplasm of breast (principal) ==

== ENCOUNTER → 2022-10-01 | Outpatient (REF) | LOC: M LABSMTC 08:47 | PROVIDERS: ATTEND Family Medicine | DX: Z11.52 Encounter for screening for COVID-19 (principal) ==

== ENCOUNTER → 2022-10-23 | Outpatient (REF) | payer BC ==
[~2022-10-23] MED LIST changes: +CIPR500T39 PO
== END ==
LOC: M PLALAB 10:03
PROVIDERS: ATTEND Nurse Practitioner Family
DX: R30.9 Painful micturition, unspecified (principal)

== ENCOUNTER 2022-10-25 12:12 | Emergency (ER) | payer BC ==
[~2022-10-25] VITALS: Ht 154.9 cm; Wt 104.5 kg
[~2022-10-25 12:12] MED LIST changes: -CIPR500T39 PO
[2022-10-25] MEDS ORDERED: CIPROFLOXACIN 400 MG in IV 1 EA IV ONE (12:55)
[2022-10-25] MEDS ORDERED: ACETAMINOPHEN TAB 650MG DOSE (2X325MG) PO ONE (12:55)
[2022-10-25 13:15] LABS: BASO # 0.1 10^3/uL (0.0-0.2); BASO % 0.9 % (0.0-1.0); EOS # 0.2 10^3/uL (0.0-0.5); EOS % 1.9 % (0.0-3.0); HEMOGLOBIN 13.1 g/dl (12.0-15.5); LYMPH # 2.4 10^3/uL (1.5-5.0); LYMPH % 30.4 % (24.0-44.0); MEAN CORPUSCULAR HEMOGLOBIN 29.1 pg (27.0-33.0); MEAN CORPUSCULAR HGB CONC 31.2 g/dl (32.0-36.5); MEAN CORPUSCULAR VOLUME 93.3 fl (80.0-96.0); MONO # 0.6 10^3/uL (0.0-0.8); MONO % 7.5 % (2.0-8.0); NEUTROPHILS # 4.5 10^3/uL (1.5-8.5); PLATELET COUNT, AUTOMATED 347 10^3/uL (150-450); WHITE BLOOD COUNT 7.7 10^3/uL (4.0-10.0)
[2022-10-25 13:32] LABS: LIPASE 35 U/L (12-53)
[2022-10-25 13:34] LABS: ALBUMIN 3.7 G/DL (3.2-5.2); ALKALINE PHOSPHATASE 83 U/L (46-116); ALT/SGPT 33 U/L (7.0-40); AST/SGOT 19 U/L (<34); BILIRUBIN,DIRECT < 0.1 MG/DL (<0.4); BILIRUBIN,TOTAL 0.3 MG/DL (0.3-1.2); BLOOD UREA NITROGEN 12 MG/DL (9-23); CALCIUM LEVEL 9.2 MG/DL (8.5-10.1); CARBON DIOXIDE LEVEL 27 MMOL/L (20-31); CHLORIDE LEVEL 106 MMOL/L (98-107); CREATININE FOR GFR 0.53 MG/DL (0.55-1.30); GLOMERULAR FILTRATION RATE > 60.0 (>51); GLUCOSE, FASTING 108 MG/DL (60-100); POTASSIUM SERUM 4.6 MMOL/L (3.5-5.1); SODIUM LEVEL 140 MMOL/L (136-145); TOTAL PROTEIN 7.5 G/DL (5.7-8.2)
[2022-10-25 14:12] VITALS: BP 128/78
[2022-10-25] MEDS ORDERED: CIPR500T39 PO (14:31)
== END 2022-10-25 14:53 | disposition home or self-care (01) ==
LOC: M ED 12:12
DX: N10 Acute pyelonephritis (principal); I10 Essential (primary) hypertension; K57.30 Diverticulosis of large intestine without perforation or abscess without bleeding; Z79.899 Other long term (current) drug therapy; Z88.0 Allergy status to penicillin; Z88.3 Allergy status to other anti-infective agents; Z91.89 Other specified personal risk factors, not elsewhere classified; Z91.041 Radiographic dye allergy status
CPT/HCPCS: 74176; 80048; 80076; 81000; 81015; 83690; 85025; 87086; 96374; 99284; J0744

== ENCOUNTER → 2022-11-07 | Outpatient (CLI) | payer BC ==
[~2022-11-07] MED LIST changes: +CIPR500T39 PO
== END ==
LOC: M PLAIMG 07:00
PROVIDERS: ATTEND Physician Assistant Medical
DX: U07.1 COVID-19 (principal)

== ENCOUNTER → 2023-04-02 | Outpatient (CLI) | payer BC ==
[2023-04-02 13:40] LABS: HEMATOCRIT 46.6 % (36.0-47.0); HEMOGLOBIN 14.5 g/dl (12.0-15.5); MEAN CORPUSCULAR HEMOGLOBIN 29.1 pg (27.0-33.0); MEAN CORPUSCULAR HGB CONC 31.1 g/dl (32.0-36.5); MEAN CORPUSCULAR VOLUME 93.4 fl (80.0-96.0); PLATELET COUNT, AUTOMATED 282 10^3/uL (150-450); RED BLOOD COUNT 4.99 10^6/uL (4.00-5.40); WHITE BLOOD COUNT 7.7 10^3/uL (4.0-10.0)
[2023-04-02 13:53] LABS: INR 0.96; PROTHROMBIN TIME 12.5 SECONDS (12.5-14.5)
[2023-04-02 13:54] LABS: PARTIAL THROMBOPLASTIN TIME 29.8 SECONDS (24.8-34.2)
[2023-04-02 14:05] LABS: HEMOGLOBIN A1c 6.5 % (4.0-6.0)
[2023-04-02 14:10] LABS: TOTAL 25(OH) VITAMIN D 29.1 NG/ML (20.0-100.0)
[2023-04-02 14:12] LABS: ALBUMIN 4.3 G/DL (3.2-5.2); ALKALINE PHOSPHATASE 89 U/L (46-116); ALT/SGPT 43 U/L (7.0-40); AST/SGOT 16 U/L (<34); BILIRUBIN,TOTAL 0.6 MG/DL (0.3-1.2); BLOOD UREA NITROGEN 19 MG/DL (9-23); CALCIUM LEVEL 10.1 MG/DL (8.5-10.1); CARBON DIOXIDE LEVEL 28 MMOL/L (20-31); CHLORIDE LEVEL 104 MMOL/L (98-107); CHOLESTEROL LEVEL 190 MG/DL (<200); CHOLESTEROL RISK RATIO 3.55 (<5); CREATININE FOR GFR 0.55 MG/DL (0.55-1.30); GLOMERULAR FILTRATION RATE > 60.0 (>51); GLUCOSE, FASTING 106 MG/DL (60-100); HDL CHOLESTEROL 53.4 MG/DL (>40); HEPATITIS B SURFACE ANTIBODY POSITIVE (POSITIVE); LDL CHOLESTEROL 99.4 MG/DL (<100); NON-HDL-C 136.6 MG/DL; SODIUM LEVEL 141 MMOL/L (136-145); THYROID STIMULATING HORMONE 2.749 uIU/ML (0.55-4.78); TOTAL PROTEIN 7.9 G/DL (5.7-8.2); TRIGLYCERIDES LEVEL 186 MG/DL (<150)
[2023-04-02 14:13] LABS: FREE T4 0.86 NG/DL (0.89-1.76)
[2023-04-02 14:43] LABS: HEPATITIS C VIRUS ABY INDEX 0.29 INDEX (<0.8)
[2023-04-02 14:47] LABS: ATYPICAL LYMPH 6 % (0-5); EOSINOPHILS 1 % (0-3); LYMPHOCYTES 37 % (16-44); MONOCYTES 5 % (0-5); NEUTROPHILS 51 % (28-66)
[2023-04-02 14:48] LABS: ANISOCYTOSIS 1+; HYPOCHROMASIA 1+
[2023-04-02 14:49] LABS: PLATELET ESTIMATE NORMAL (NORMAL)
[2023-04-03 08:51] LABS: PTH INTACT 28.3 PG/ML (18.5-88.0)
== END ==
LOC: M PLALAB 09:16
PROVIDERS: ATTEND Physician Assistant Medical
DX: E55.9 Vitamin D deficiency, unspecified (principal); I10 Essential (primary) hypertension; E78.2 Mixed hyperlipidemia; K76.0 Fatty (change of) liver, not elsewhere classified; R73.03 Prediabetes; F41.9 Anxiety disorder, unspecified

== ENCOUNTER → 2023-06-25 | Outpatient (CLI) | payer BC | LOC: M WHC 07:02 | PROVIDERS: ATTEND Physician Assistant Medical | DX: K76.0 Fatty (change of) liver, not elsewhere classified (principal) ==

== ENCOUNTER → 2023-07-27 | Outpatient (CLI) | payer BC | LOC: M WHC 07:06 | PROVIDERS: ATTEND Nurse Practitioner Family | DX: Z12.31 Encounter for screening mammogram for malignant neoplasm of breast (principal); Z80.3 Family history of malignant neoplasm of breast; R92.323 Mammographic fibroglandular density, bilateral breasts ==

== ENCOUNTER → 2023-10-30 | Outpatient (REF) | payer BC ==
[2023-10-30 11:21] LABS: HEMOGLOBIN A1c 6.1 % (4.0-6.0)
[2023-10-30 11:32] LABS: ALBUMIN 3.9 G/DL (3.2-5.2); ALKALINE PHOSPHATASE 73 U/L (46-116); ALT/SGPT 32 U/L (7.0-40); AST/SGOT 16 U/L (<34); BILIRUBIN,TOTAL 0.5 MG/DL (0.3-1.2); BLOOD UREA NITROGEN 19 MG/DL (9-23); CALCIUM LEVEL 9.4 MG/DL (8.5-10.1); CARBON DIOXIDE LEVEL 30 MMOL/L (20-31); CHLORIDE LEVEL 104 MMOL/L (98-107); CREATININE FOR GFR 0.57 MG/DL (0.55-1.30); GLOMERULAR FILTRATION RATE > 60.0 (>51); GLUCOSE, FASTING 80 MG/DL (60-100); POTASSIUM SERUM 4.2 MMOL/L (3.5-5.1); SODIUM LEVEL 140 MMOL/L (136-145); TOTAL PROTEIN 7.2 G/DL (5.7-8.2)
== END ==
LOC: M SFHCPLAZ 10:11
PROVIDERS: ATTEND Physician Assistant Medical
DX: E11.9 Type 2 diabetes mellitus without complications (principal)

== ENCOUNTER → 2023-12-17 | Outpatient (CLI) | payer BC | LOC: M WHC 07:21 | PROVIDERS: ATTEND Physician Assistant Medical | DX: K76.0 Fatty (change of) liver, not elsewhere classified (principal) ==

== ENCOUNTER → 2024-03-28 | Outpatient (CLI) | payer BC ==
[2024-03-28 11:48] LABS: BASO # 0.1 10^3/uL (0.0-0.2); EOS # 0.2 10^3/uL (0.0-0.5); EOS % 2.5 % (0.0-3.0); HEMATOCRIT 42.8 % (36.0-47.0); HEMOGLOBIN 13.8 g/dl (12.0-15.5); LYMPH # 2.8 10^3/uL (1.5-5.0); LYMPH % 45.8 % (24.0-44.0); MEAN CORPUSCULAR HEMOGLOBIN 29.9 pg (27.0-33.0); MEAN CORPUSCULAR HGB CONC 32.2 g/dl (32.0-36.5); MEAN CORPUSCULAR VOLUME 92.8 fl (80.0-96.0); MONO # 0.5 10^3/uL (0.0-0.8); MONO % 8.2 % (2.0-8.0); NEUTROPHILS # 2.6 10^3/uL (1.5-8.5); NEUTROPHILS % 42.3 % (36.0-66.0); PLATELET COUNT, AUTOMATED 262 10^3/uL (150-450); RED BLOOD COUNT 4.61 10^6/uL (4.00-5.40); WHITE BLOOD COUNT 6.1 10^3/uL (4.0-10.0)
[2024-03-28 12:19] LABS: ALKALINE PHOSPHATASE 79 U/L (46-116); ALT/SGPT 30 U/L (7.0-40); AST/SGOT 15 U/L (<34); BILIRUBIN,TOTAL 0.5 MG/DL (0.3-1.2); BLOOD UREA NITROGEN 21 MG/DL (9-23); CALCIUM LEVEL 9.7 MG/DL (8.5-10.1); CARBON DIOXIDE LEVEL 31 MMOL/L (20-31); CHLORIDE LEVEL 103 MMOL/L (98-107); CREATININE FOR GFR 0.55 MG/DL (0.55-1.30); GLOMERULAR FILTRATION RATE > 60.0 (>51); GLUCOSE, FASTING 94 MG/DL (60-100); POTASSIUM SERUM 4.1 MMOL/L (3.5-5.1); SODIUM LEVEL 138 MMOL/L (136-145); TOTAL PROTEIN 7.4 G/DL (5.7-8.2)
== END ==
LOC: M PLALAB 07:43
PROVIDERS: ATTEND Physician Assistant Medical
DX: G89.29 Other chronic pain (principal); K76.0 Fatty (change of) liver, not elsewhere classified; I10 Essential (primary) hypertension

== ENCOUNTER → 2024-07-06 | Outpatient (REF) | LOC: M EMP 10:51 | PROVIDERS: ATTEND Family Medicine | DX: U07.1 COVID-19 (principal) ==

== ENCOUNTER → 2024-07-21 | Outpatient (CLI) | payer BC ==
[2024-07-21 10:32] LABS: BASO % 0.5 % (0.0-1.0); EOS # 0.2 10^3/uL (0.0-0.5); EOS % 2.4 % (0.0-3.0); HEMATOCRIT 40.3 % (36.0-47.0); HEMOGLOBIN 13.3 g/dl (12.0-15.5); LYMPH # 2.6 10^3/uL (1.5-5.0); LYMPH % 35.7 % (24.0-44.0); MEAN CORPUSCULAR HEMOGLOBIN 29.7 pg (27.0-33.0); MONO # 0.6 10^3/uL (0.0-0.8); MONO % 7.7 % (2.0-8.0); NEUTROPHILS # 3.9 10^3/uL (1.5-8.5); NEUTROPHILS % 53.6 % (36.0-66.0); PLATELET COUNT, AUTOMATED 315 10^3/uL (150-450); RED BLOOD COUNT 4.48 10^6/uL (4.00-5.40); WHITE BLOOD COUNT 7.4 10^3/uL (4.0-10.0)
[2024-07-21 10:47] LABS: HEMOGLOBIN A1c 5.7 % (4.0-6.0)
[2024-07-21 10:58] LABS: ALBUMIN 3.8 G/DL (3.2-5.2); ALKALINE PHOSPHATASE 64 U/L (35-104); ALT/SGPT 25 U/L (7.0-40); AST/SGOT 16 U/L (<34); BILIRUBIN,TOTAL 0.5 MG/DL (0.3-1.2); BLOOD UREA NITROGEN 21 MG/DL (9-23); CALCIUM LEVEL 9.7 MG/DL (8.5-10.1); CARBON DIOXIDE LEVEL 25 MMOL/L (20-31); CHLORIDE LEVEL 105 MMOL/L (98-107); CREATININE FOR GFR 0.51 MG/DL (0.55-1.30); GLOMERULAR FILTRATION RATE > 60.0 (>51); GLUCOSE, FASTING 94 MG/DL (60-100); SODIUM LEVEL 141 MMOL/L (136-145); TOTAL PROTEIN 7.4 G/DL (5.7-8.2)
[2024-07-21 11:00] LABS: THYROID STIMULATING HORMONE 1.626 uIU/ML (0.55-4.78); TOTAL 25(OH) VITAMIN D 28.9 NG/ML (20.0-100.0)
[2024-07-21 11:01] LABS: FREE T4 0.94 NG/DL (0.89-1.76)
== END ==
LOC: M PLALAB 08:46
PROVIDERS: ATTEND Physician Assistant Medical
DX: E66.01 Morbid (severe) obesity due to excess calories (principal)

== ENCOUNTER → 2024-08-02 | Outpatient (CLI) | payer BC | LOC: M WHC 07:12 | PROVIDERS: ATTEND Nurse Practitioner Family | DX: Z12.31 Encounter for screening mammogram for malignant neoplasm of breast (principal) ==